=== PATIENT | male | born 1945 | race Caucasian/White ===

== ENCOUNTER 2016-10-04 07:23 | Day surgery (SDC) | payer BC, MEDICARE ==
[2016-10-04] MEDS ORDERED: Sodium Chloride 0.9% 2.5 ML Syringe FLUSH PRN (07:29)
[2016-10-04] MEDS ORDERED: Sodium Chloride 0.9% 10 ML Syringe FLUSH PRN (07:29)
[2016-10-04] MEDS ORDERED: Lactated Ringers 1,000 ML IV SCH (07:30)
[2016-10-04] MEDS ORDERED: Lidocaine 2% 5 ML SDV ONE (07:33)
[2016-10-04] MEDS ORDERED: Midazolam 1 MG/ML 2 ML SDV ONE (07:34)
[2016-10-04] MEDS ORDERED: fentaNYL 250 MCG/5 ML SDV ONE (07:34)
[2016-10-04] MEDS ORDERED: Propofol 200 MG/20 ML SDV ONE (07:34)
[2016-10-04] MEDS ORDERED: Ondansetron 4 MG/2 ML SDV ONE ×2 (07:34→09:38)
[2016-10-04] MEDS ORDERED: fentaNYL 100 MCG/2 ML SDV ONE (07:34)
[2016-10-04] MEDS ORDERED: Ketorolac 30 MG/ML SDV ONE (07:34)
--- NOTE | 2016-10-04 08:21 | PCM.PREANE ---
Preanesthetic Assessment - Procedure Proposed Procedure: Left Knee Arthroscopy and medial menisectomy - Anesthesia/Transfusion/Family Hx Anesthesia History: Prior Anesthesia Without Reaction Family History of Anesthesia Reaction: No Transfusion History: No Prior Transfusion(s) Intubation History: Unknown - Review of Systems General: No Symptoms Pulmonary: No Symptoms Cardiovascular: No Symptoms Gastrointestinal: No Symptoms Neurological: Gait Disturbance (due to left knee pain) Other: Reports: None - Physical Assessment NPO Status Date: 10/03/16 NPO Status Time: 22:00 O2 Sat by Pulse Oximetry: 93 Respiratory Rate: 16 Vital Signs: Last Vital Signs Temp 98.1 F 10/04/16 08:07 Pulse 71 10/04/16 08:07 Resp 16 10/04/16 08:07 BP 123/65 10/04/16 08:07 Pulse Ox 93 L 10/04/16 08:07 Height: 5 ft 7 in Weight: 184 lb ASA Class: 2 Mental Status: Alert & Oriented x3 Airway Class: Mallampati = 2 Dentition: Reports: Normal Dentition Thyro-Mental Finger Breadths: 3 Mouth Opening Finger Breadths: 3 ROM/Head Extension: Full Lungs: Clear to Auscultation, Normal Respiratory Effort Cardiovascular: Regular Rate, Regular Rhythm, No Murmurs - Allergies Allergies/Adverse Reactions: Allergies Allergy/AdvReac Type Severity Reaction Status Date / Time ciprofloxacin [From Cipro] Allergy Rash Verified 10/03/16 15:35 ciprofloxacin HCl Allergy Rash Verified 10/03/16 15:35 [From Cipro] - Blood Blood Available: No Product(s) Available: None - Acknowledgements Anesthesia Type Planned: General Anesthesia (LMA) Pt an Appropriate Candidate for the Planned Anesthesia: Yes Alternatives and Risks of Anesthesia Discussed w Pt/Guardian: Yes Pt/Guardian Understands and Agrees with Anesthesia Plan: Yes PreAnesthesia Questionnaire Other HEENT History: uses reading glasses Cardiovascular History: Reports: None Respiratory History: Reports: None Gastrointestinal History: Reports: Other (See Below) Other Gastrointestinal History: colon cancer Genitourinary History: Reports: None Musculoskeletal History: Reports: Back Pain, Chronic Neurological History: Reports: Other (See Below) Other Neuro History: hx of motion sickness Psychiatric History: Reports: None Endocrine/Metabolic History: Reports: None Hematologic History: Reports: None Immunologic History: Reports: None Oncologic (Cancer) History: Reports: Colon Dermatologic History: Reports: None - Past Surgical History Head Surgeries/Procedures: Reports: None HEENT Surgical History: Reports: None Other GI Surgeries/Procedures: colon resection Neurological Surgical History: Reports: Laminectomy Oncologic Surgical History: Reports: Other (See Below) Other Oncologic Surgeries/Procedures: colon resection - SUBSTANCE USE Smoking Status *Q: Never Smoker Recreational Drug Use History: No - HOME MEDS Home Medications: Home Meds . [No Known Home Meds] 10/03/16 [History] - CURRENT (IN HOUSE) MEDS Current Meds: Current Medications Lactated Ringer's (Ringers, Lactated) 1,000 mls @ 125 mls/hr IV ASDIRECTED QING Sodium Chloride (Saline Flush) 10 ml FLUSH ASDIRECTED PRN PRN Reason: Keep Vein Open Sodium Chloride (Saline Flush) 2.5 ml FLUSH ASDIRECTED PRN PRN Reason: Keep Vein Open Discontinued Medications Fentanyl (Sublimaze) Confirm Administered Dose 100 mcg .ROUTE .STK-MED ONE Stop: 10/04/16 07:35 Fentanyl (Sublimaze) Confirm Administered Dose 250 mcg .ROUTE .STK-MED ONE Stop: 10/04/16 07:35 Ketorolac Tromethamine (Toradol) Confirm Administered Dose 30 mg .ROUTE .STK- MED ONE Stop: 10/04/16 07:35 Lidocaine (Xylocaine-Mpf 2%) Confirm Administered Dose 10 ml .ROUTE .STK-MED ONE Stop: 10/04/16 07:34 Midazolam HCl (Versed 1 Mg/Ml) Confirm Administered Dose 2 mg .ROUTE .STK-MED ONE Stop: 10/04/16 07:35 Ondansetron HCl (Zofran) Confirm Administered Dose 4 mg .ROUTE .STK-MED ONE Stop: 10/04/16 07:35 Propofol (Diprivan 20 Ml) Confirm Administered Dose 400 mg .ROUTE .STK-MED ONE Stop: 10/04/16 07:35
[2016-10-04] MEDS ORDERED: Acetaminophen/HYDROcodone 325-5 MG Tab PO PRN (08:46)
[2016-10-04] MEDS ORDERED: Lidocaine 1% 50 ML MDV ONE (08:49)
[2016-10-04] MEDS ORDERED: ceFAZolin 2 GM in Premix Bag 1 BAG IV SCH (09:00)
[2016-10-04] MEDS ORDERED: fentaNYL 100 MCG/2 ML SDV IVPUSH PRN (10:10)
--- NOTE | 2016-10-04 10:14 | PCM.OPNOTE ---
- General Post-Op/Procedure Note Date of Surgery/Procedure: 10/04/16 Operative Procedure(s): Left knee arthroscopy with partial medial menisectomy Post-Op Diagnosis: DJD left knee. L knee medial meniscus tear Anesthesia Technique: General LMA Primary Surgeon: Nidia GEIGER in mLs: 5 Condition: Good Free Text/Narrative:: tt=18 min #[id number]
--- NOTE | 2016-10-04 10:39 | OR ---
SURGEON: Nidia Mills MD DATE OF PROCEDURE: 10/04/2016 PREOPERATIVE DIAGNOSIS: Left knee medial meniscus tear. POSTOPERATIVE DIAGNOSES: 1. Left knee medial meniscus tear. 2. Degenerative joint disease, left knee. PROCEDURE: Left knee arthroscopy with partial medial meniscectomy. WEB COMMUNICATIONS SPECIALIST: None. ANESTHESIA: General. ESTIMATED BLOOD LOSS: 5 mL. TOURNIQUET TIME: 18 minutes. COMPLICATIONS: None. DVT PROPHYLAXIS: Not indicated. IMPLANTS USED: None. BRIEF HISTORY: Mann is a 71-year-old male, who began having increasing left knee pain and swelling. He did undergo a knee aspiration along with cortisone injection, which gave him good temporary relief. His pain subsequently recurred. He complained of a giving way sensation. He did have an MRI, which did confirm a tear of the medial meniscus with displacement. Due to his lack of response to conservative treatment, I did recommend surgical intervention. The risks and goals of procedure were discussed with the patient and were documented preoperatively. He agreed to proceed. DESCRIPTION OF PROCEDURE: The patient was properly identified and brought to the operating room. He was transferred from the OR cart and placed on the operating table in supine position. General anesthesia was administered. After adequate anesthesia was obtained, a well-padded tourniquet was applied to the left lower extremity. The left lower extremity was then prepped in standard fashion using ChloraPrep solution. It was then sterilely draped. A time-out was performed to ensure correct site and procedure. Preoperative antibiotics were given. The surgical site had been marked preoperatively. An Esmarch was used to exsanguinate the left lower extremity and the tourniquet was inflated to 250 mmHg. A lateral portal arthrotomy was established. Blunt trocar and cannula were introduced into the suprapatellar pouch. Camera, inflow, and outflow were assembled. The suprapatellar pouch showed no signs of synovitis. The patellofemoral joint was then visualized. The patella appeared to track centrally. I then extended down the lateral and medial gutters. No loose bodies were identified. I then entered the medial compartment. A medial portal arthrotomy was established. A blunt probe was inserted. He was found to have a complex degenerative tear of the posterior horn of the medial meniscus. A portion of the medial meniscus had flipped into the notch. Using a combination of biters and shaver, this was resected back to a stable remnant. The joint surfaces were then inspected. 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 Grade 2 chondromalacia was noted along the medial femoral condyle. I then entered the notch. Both the ACL and PCL were visualized and probed and found to be intact. I then entered the lateral compartment. The meniscus was again probed. It was found to be stable. Some minor degenerative fraying was noted along the central portion which was resected with a biter and shaver. The joint surfaces showed evidence of grade 2 chondromalacia. I then re-entered the patellofemoral joint. A portion of the fat pad was resected for visualization. He did have diffuse degenerative changes along the trochlear groove consistent with grade 3 chondromalacia. There was a small area of grade 4 chondromalacia centrally. A chondroplasty was performed to remove any unstable fragments. The patella showed grade 2 chondromalacia only. The instruments were then removed from the knee. The portal sites were closed with 3-0 nylon. Xeroform gauze was placed over the wound and a bulky dressing was applied. The tourniquet was then deflated. He was awakened from his anesthetic and transferred back to the operating room cart. He was brought to recovery room in stable condition. All needle and sponge counts were correct. DEBBIE / BRITNEY /[id number]
--- NOTE | 2016-10-04 10:45 | PCM.POSTAN ---
POST ANESTHESIA ASSESSMENT - MENTAL STATUS Mental Status: Alert, Oriented Free Text/Narrative:: Slept with oral airway in place for 30 minutes. Awake and ready for transfer to phase II - RESPIRATORY Respiratory Status: Respiratory Rate WNL, Airway Patent, O2 Saturation Stable - CARDIOVASCULAR CV Status: Pulse Rate WNL, Blood Pressure Stable - GASTROINTESTINAL GI Status: No Symptoms - POST OP HYDRATION Hydration Status: Adequate & Stable
--- NOTE | 2016-10-04 10:51 | HP ---
DATE OF : 1945 PRIMARY CARE PHYSICIAN: None PCP CHIEF COMPLAINT: Left knee pain and swelling. HISTORY OF PRESENT ILLNESS: Mann is a 71-year-old male who has had a complaint of recent left knee pain and swelling. He cannot recall a specific injury. He states his pain is related primarily to activity. He has noted intermittent swelling. He did undergo a left knee aspiration with cortisone injection approximately 3 weeks ago. He states this gave him good pain relief initially; however, his pain and swelling have recurred. It is now limiting his day-to-day activities. He does have a history of a prior knee arthroscopy many years ago; however, he is unsure which knee that was performed on. He recently had an MRI, which showed a complex tear of the medial meniscus with displacement of a meniscus fragment. Due to his lack of response to conservative treatment, I recommended surgical treatment. PAST MEDICAL HISTORY: The patient denies. PAST SURGICAL HISTORY: Knee arthroscopy, back surgery, and colon resection. MEDICATIONS: None. ALLERGIES: Cipro. SOCIAL HISTORY: He is currently employed as a urologist. He denies tobacco use. FAMILY HISTORY: Noncontributory. REVIEW OF SYSTEMS: He denies recent fever, chills, cough, shortness of breath, chest pain, nausea, or vomiting. PHYSICAL EXAMINATION: VITAL SIGNS: Blood pressure 122/65, temp 36.7, pulse 71, and respirations 16. SpO2 is 93% on room air. GENERAL: This is an alert and well-nourished male who is resting in hospital bed in no apparent distress. HEENT: Head is normocephalic and atraumatic. NECK: Supple. CHEST: Showed symmetrical excursions, unlabored. HEART: Regular rate. ABDOMEN: Soft. EXTREMITIES: Exam of the left lower extremity shows a mild joint effusion. No obvious malalignment is noted. He does have tenderness along the medial joint line. He has full extension with flexion to 115 degrees. He is stable to varus and valgus stressing. Crepitus is noted along the patellofemoral joint. Anterior tib, EHL, gastroc strength is 5/5. Sensation is grossly intact. Dorsalis pedis pulses 2+. IMAGING: X-rays of the left knee were obtained. This shows no acute findings. MRI of the left knee shows a displaced tear of the medial meniscus with degenerative changes noted along the patellofemoral joint. ASSESSMENT: Left knee medial meniscus tear. PLAN: At this time, treatment options were discussed with the patient. He has had a good trial of conservative treatment which has not given him lasting relief. At this time, I am recommending that he undergo a left knee arthroscopy with partial medial meniscectomy. This would give us a chance to evaluate the chondral surfaces as well. The procedure as well as postoperative course was discussed. Risks of the procedure include, but are not limited to infection, neurovascular injury, continued pain, need for future surgery, blood clot, and anesthetic complications. The patient seems to understand these risks and would like to proceed with surgery. We will plan on performing it in the near future. DEBBIE / BRITNEY /[id number]
--- NOTE | 2016-10-04 11:34 | PCM48HPAN ---
Post Anesthesia Note - EVALUATION WITHIN 48HRS OF ANESTHETIC Vital Signs in Normal Range: Yes Patient Participated in Evaluation: Yes Respiratory Function Stable: Yes Airway Patent: Yes Cardiovascular Function Stable: Yes Hydration Status Stable: Yes Pain Control Satisfactory: Yes Nausea and Vomiting Control Satisfactory: Yes Mental Status Recovered: Yes
[2016-10-04] MEDS ORDERED: Ondansetron 4 MG/2 ML SDV IVPUSH ONE (13:36)
[2016-10-04 15:45] VITALS: BP 121/64
== END 2016-10-04 13:52 | disposition home or self-care (01) ==
LOC: MW.SDS 07:23
PROVIDERS: ATTEND Orthopaedic Surgery
PROC: 0SBD4ZZ Excision of Left Knee Joint, Percutaneous Endoscopic Approach (ICD-10-PCS; principal; 2016-10-04)
DX: M23.322 Other meniscus derangements, posterior horn of medial meniscus, left knee (principal); M17.12 Unilateral primary osteoarthritis, left knee; M94.262 Chondromalacia, left knee; Z85.038 Personal history of other malignant neoplasm of large intestine; Z90.49 Acquired absence of other specified parts of digestive tract; Z98.890 Other specified postprocedural states; Z88.1 Allergy status to other antibiotic agents
CPT/HCPCS: 29881; 88304; J1885; J2250; J2405; J3010; J7120; 01400; J2704

== ENCOUNTER 2017-05-10 21:40 | Observation (INO) | payer BC, MEDICARE ==
[2017-05-10] MEDS ORDERED: Sodium Chloride 0.9% 10 ML Syringe FLUSH PRN (21:41)
[2017-05-10] MEDS ORDERED: Sodium Chloride 0.9% 2.5 ML Syringe FLUSH PRN (21:41)
[2017-05-10] MEDS ORDERED: Diltiazem 25 MG/5 ML SDV IVPUSH ONE (21:46)
--- NOTE | 2017-05-10 21:55 | EDM.PDOC ---
<Halima Moore - Last Filed: 05/10/17 22:20> ED HPI GENERAL MEDICAL PROBLEM - General Stated Complaint: UNK Time Seen by Provider: 05/10/17 21:45 - History of Present Illness INITIAL COMMENTS - FREE TEXT/NARRATIVE: Dr. Moore dictating an addendum note. I personally seen and evaluated this patient as well and Dr. Lizarraga is here in the emergency department at 2205 to take over the care and admit the patient. He would like a dose of Lovenox to be given. A repeat EKG was performed for total of 2 EKGs and he is still in atrial fibrillation but he is rate controlled. We will plan on observation on telemetry. Please also note that the patient didn't take medication prior to coming here including an aspirin and atenolol. Dr. Lizarraga has seen and evaluated the patient and does not want us to hold the patient in the ED pending the lab test results and x-ray results. He says he will follow those up. As soon as the room is available we will plan on transfer for observation admission. - Related Data Allergies Allergy/AdvReac Type Severity Reaction Status Date / Time oxycodone Allergy Chest Pain Verified 05/10/17 22:03 Home Meds: Home Meds Acetaminophen/HYDROcodone [[place] 325-5 MG] 1 - 2 tab PO Q4H PRN #80 tablet 10/04 [Rx] ED ROS GENERAL - Review of Systems Review Of Systems: ROS reveals no pertinent complaints other than HPI. ED EXAM, GENERAL - Physical Exam Exam: See Below (see dictation) Course - Vital Signs Last Recorded V/S: Last Vital Signs Temp 36.2 C 05/11/17 05:00 Pulse 93 05/11/17 06:35 Resp 16 05/11/17 08:00 BP 133/89 05/11/17 08:00 Pulse Ox 96 05/11/17 08:00 - Orders/Labs/Meds Orders: Active Orders 24 hr Category Date Time Status Cardiac Monitoring [RC] Q8H Care 05/10/17 21:40 Active Chest 1V Frontal [CR] Stat Exams 05/10/17 21:41 Taken Sodium Chloride 0.9% [Saline Flush] Med 05/10/17 21:41 Active 10 ml FLUSH ASDIRECTED PRN Sodium Chloride 0.9% [Saline Flush] Med 05/10/17 21:41 Active 2.5 ml FLUSH ASDIRECTED PRN Saline Lock Insert [OM.PC] Stat Oth 05/10/17 21:40 Ordered Medication Orders Acetaminophen (Tylenol) 650 mg PO Q4H PRN PRN Reason: Pain (Mild 1-3)/fever Hydrocodone Bitart/Acetaminophen ([place] 325-5 Mg) 1 tab PO Q4H PRN PRN Reason: Pain Aspirin (Aspirin) 81 mg PO DAILY [facility] Last Admin: 05/11/17 08:00 Dose: 81 mg Heparin Sodium (Porcine) (Heparin Sodium) 5,000 units SUBCUT Q12H [facility] Last Admin: 05/10/17 23:39 Dose: Sodium Chloride (Normal Saline) 1,000 mls @ 75 mls/hr IV ONETIME ONE Stop: 05/11/17 17:04 Last Admin: 05/11/17 04:03 Dose: 125 mls/hr Metoprolol Tartrate (Lopressor) 50 mg PO BID [facility] Last Admin: 05/11/17 06:35 Dose: 50 mg Ondansetron HCl (Zofran Odt) 4 mg PO Q4H PRN PRN Reason: nausea, able to take PO Last Admin: 05/11/17 07:30 Dose: 4 mg Ondansetron HCl (Zofran) 4 mg IVPUSH Q4H PRN PRN Reason: Nausea Polyethylene Glycol (Miralax) 17 gm PO DAILY PRN PRN Reason: Constipation Sodium Chloride (Saline Flush) 10 ml FLUSH ASDIRECTED PRN PRN Reason: Keep Vein Open Sodium Chloride (Saline Flush) 2.5 ml FLUSH ASDIRECTED PRN PRN Reason: Keep Vein Open Temazepam (Restoril) 15 mg PO BEDTIME PRN PRN Reason: Sleep Labs: Laboratory Tests 05/10/17 05/10/17 05/10/17 Range/Units 21:58 21:58 21:58 WBC 144.30 H (4.0-11.0) K/uL RBC 4.70 (4.50-5.90) M/uL Hgb 14.1 (13.0-17.0) g/dL Hct 43.8 (38.0-50.0) % MCV 93.2 (80.0-98.0) fL MCH 30.0 (27.0-32.0) pg MCHC 32.2 (31.0-37.0) g/dL RDW Std Deviation 46.3 (28.0-62.0) fl RDW Coeff of Isaias 14 (11.0-15.0) % Plt Count 263 (150-400) K/uL MPV 10.90 (7.40-12.00) fL Add Manual Diff YES Neutrophils % (Manual) 9 L (48.0-80.0) % Lymphocytes % (Manual) 91 H (16.0-40.0) % Nucleated RBC % 0.0 /100WBC Absolute Seg Neuts 13.0 H (1.4-5.7) Lymphocytes # (Manual) 131.3 H (0.6-2.4) Nucleated RBCs # 0 K/uL INR 0.96 Sodium 141 (136-148) mmol/L Potassium 4.3 (3.5-5.1) mmol/L Chloride 103 (98-107) mmol/L Carbon Dioxide 28.2 (21.0-32.0) mmol/L BUN 27 H (7.0-18.0) mg/dL Creatinine 1.1 (0.8-1.3) mg/dL Est Cr Clr Drug Dosing TNP Estimated GFR (MDRD) > 60.0 ml/min Glucose 139 H (74-106) mg/dL Calcium 8.9 (8.5-10.1) mg/dL Magnesium 1.6 (1.5-2.0) mg/dL Total Bilirubin 0.6 (0.2-1.0) mg/dL AST 19 (15-37) IU/L ALT 22 (14-63) IU/L Alkaline Phosphatase 75 (46-116) U/L Troponin I < 0.050 (0.000-0.056) ng/mL Total Protein 6.5 (6.4-8.2) g/dL Albumin 3.5 (3.4-5.0) g/dL Globulin 3.0 (2.0-3.5) g/dL Albumin/Globulin Ratio 1.2 L (1.3-2.8) TSH 3rd Generation 1.24 (0.36-3.74) uIU/mL Meds: Medications Generic Name Dose Route Start Last Admin Trade Name Freq PRN Reason Stop Dose Admin Acetaminophen 650 mg 05/10/17 22:38 Tylenol PO Q4H PRN Pain (Mild 1-3)/fever Hydrocodone Bitart/Acetaminophen 1 tab 05/11/17 07:42 [place] 325-5 Mg PO Q4H PRN Pain Aspirin 81 mg 05/11/17 09:00 05/11/17 08:00 Aspirin PO 81 mg DAILY QING Administration Heparin Sodium (Porcine) 5,000 units 05/10/17 22:45 05/10/17 23:39 Heparin Sodium SUBCUT Not Given Q12H [facility] Sodium Chloride 1,000 mls @ 75 mls/hr 05/11/17 03:45 05/11/17 04:03 Normal Saline IV 05/11/17 17:04 125 mls/hr ONETIME ONE Administration Metoprolol Tartrate 50 mg 05/11/17 06:30 05/11/17 06:35 Lopressor PO 50 mg BID QING Administration Ondansetron HCl 4 mg 05/10/17 22:38 05/11/17 07:30 Zofran Odt PO 4 mg Q4H PRN Administration nausea, able to take PO Ondansetron HCl 4 mg 05/10/17 22:38 Zofran IVPUSH Q4H PRN Nausea Polyethylene Glycol 17 gm 05/10/17 22:38 Miralax PO DAILY PRN Constipation Sodium Chloride 10 ml 05/10/17 21:41 Saline Flush FLUSH ASDIRECTED PRN Keep Vein Open Sodium Chloride 2.5 ml 05/10/17 21:41 Saline Flush FLUSH ASDIRECTED PRN Keep Vein Open Temazepam 15 mg 05/10/17 22:38 Restoril PO BEDTIME PRN Sleep Discontinued Medications Generic Name Dose Route Start Last Admin Trade Name Freq PRN Reason Stop Dose Admin Hydrocodone Bitart/Acetaminophen 1 tab 05/10/17 22:38 [place] 325-5 Mg PO Q4H PRN Pain (moderate 4-6) Diazepam 2 mg 05/11/17 07:32 05/11/17 08:00 Valium PO 05/11/17 07:33 2 mg ONETIME ONE Administration Diltiazem HCl 20 mg 05/10/17 21:46 05/10/17 21:52 Diltiazem IVPUSH 05/10/17 21:47 20 mg ONETIME ONE Administration Enoxaparin Sodium 80 mg 05/10/17 22:10 05/10/17 23:38 Lovenox SUBCUT 05/10/17 22:11 40 mg ONETIME ONE Administration Hydromorphone HCl 1 mg 05/10/17 22:38 05/10/17 23:54 Dilaudid IVPUSH 1 mg Q2H PRN Administration Pain (severe 7-10) Hydromorphone HCl 2 mg 05/10/17 22:51 Dilaudid PO Q4H PRN Pain Sodium Chloride 1,000 mls @ 999 mls/hr 05/10/17 21:56 05/10/17 22:03 Normal Saline IV 05/10/17 22:56 999 mls/hr STAT ONE Administration Magnesium Sulfate 4 gm/ Premix 100 mls @ 25 mls/hr 05/10/17 23:31 05/10/17 23 :44 IV 05/11/17 03:30 25 mls/hr ONETIME ONE Administration Departure - Departure Time of Disposition: 22:21 Disposition: Refer to Observation Condition: Good Clinical Impression: Atrial fibrillation Qualifiers: Atrial fibrillation type: unspecified Qualified Code(s): I48.91 - Unspecified atrial fibrillation - Discharge Information - My Orders Last 24 Hours: My Active Orders 05/10/17 21:40 Cardiac Monitoring [RC] Q8H Saline Lock Insert [OM.PC] Stat 05/10/17 21:41 Chest 1V Frontal [CR] Stat Sodium Chloride 0.9% [Saline Flush] 10 ml FLUSH ASDIRECTED PRN Sodium Chloride 0.9% [Saline Flush] 2.5 ml FLUSH ASDIRECTED PRN - Assessment/Plan Last 24 Hours: My Active Orders 05/10/17 21:40 Cardiac Monitoring [RC] Q8H Saline Lock Insert [OM.PC] Stat 05/10/17 21:41 Chest 1V Frontal [CR] Stat Sodium Chloride 0.9% [Saline Flush] 10 ml FLUSH ASDIRECTED PRN Sodium Chloride 0.9% [Saline Flush] 2.5 ml FLUSH ASDIRECTED PRN <Merle Kraus - Last Filed: 05/11/17 10:10> ED HPI GENERAL MEDICAL PROBLEM - General Source of Information: Reports: Patient History Limitations: Reports: No Limitations - History of Present Illness INITIAL COMMENTS - FREE TEXT/NARRATIVE: HISTORY AND PHYSICAL: []72-year-old male presenting with new onset atrial fibrillation approximately 10 minutes History of Present Illness: []Patient does not have history of atrial fibrillation Prior to arrival in the ER patient took atenolol to a baby aspirin. Patient has history of colon cancer 23 years ago with surgical intervention He states that he has had intermittent spells of a few seconds of fibrillation in the past that seems to be aggravated with taking Motrin. He had 2 Motrin today earlier. Review of Systems: As per history of present illness and below otherwise all systems reviewed and negative. Past medical history: As per history of present illness and as reviewed below otherwise noncontributory. Surgical history: As per history of present illness and as reviewed below otherwise noncontributory. Social history: No reported history of drug or alcohol abuse. Family history: As per history of present illness and as reviewed below otherwise noncontributory. Physical exam: Patient is complaining of some shortness of breath at this time. Heart rate 148 atrial fibrillation. Alert and oriented answering questions appropriately in full sentences without noticeable shortness of breath. Skin is warm and dry. EKG initially showing fibrillation with rapid ventricular response at 148. HEENT: Atraumatic, normocehpalic, pupils reactive, negative for conjunctival pallor or scleral icterus, mucous membranes moist, throat clear, neck supple, nontender, trachea midline. PERRLA. Lungs: Clear to auscultation, breath sounds equal bilaterally, chest non tender. Heart: S1S2, irregular, negative for clicks, rubs, or JVD. Abdomen: Soft, nondistended, nontender. Negative for masses or hepatossplenmegaly. Negative for costovertebral tenderness. Pelvis: Stable nontender. Genitourinary: Deferred. Rectal: Deferred Extremities: Atraumatic, negative for cords or calf pain. Neurovascular unremarkable. Neuro: Awake, alert, oriented. Cranial nerves II through XII unremarkable. Cerebellum unremarkable. Motor and sensory unremarkable throughout. Exam nonfocal. Course of action during stay 20 mg of Cardizem was an IV he had a reduction in his tachycardia continues to be in atrial fibrillation 70s-80s. 22:05 Dr. Lizarraga here to take over this case. Diagnostics: [CBC CMP troponin TSH chest x-ray] Therapeutics: [Cardizem IV 20 milligrams Normal saline Impression: [Atrial fibrillation with rapid ventricular response] Plan: [Refer for observation on telemetry] Definitive disposition and diagnosis as appropriate pending reevaluation and review of above. Onset: Today, Sudden Duration: Minutes: (10) Location: Reports: Chest Quality: Reports: Ache Severity: Moderate Improves with: Reports: None Worsens with: Reports: None Associated Symptoms: Reports: No Other Symptoms Back Pain Score (Numeric/FACES): 5 Past Medical History Other HEENT History: uses reading glasses Cardiovascular History: Reports: None Respiratory History: Reports: None Gastrointestinal History: Reports: Other (See Below) Other Gastrointestinal History: colon cancer Genitourinary History: Reports: None Musculoskeletal History: Reports: Back Pain, Chronic Neurological History: Reports: Other (See Below) Other Neuro History: hx of motion sickness Psychiatric History: Reports: None Endocrine/Metabolic History: Reports: None Hematologic History: Reports: None Immunologic History: Reports: None Oncologic (Cancer) History: Reports: Colon Dermatologic History: Reports: None - Past Surgical History Head Surgeries/Procedures: Reports: None HEENT Surgical History: Reports: None Other GI Surgeries/Procedures: colon resection Neurological Surgical History: Reports: Laminectomy Oncologic Surgical History: Reports: Other (See Below) Other Oncologic Surgeries/Procedures: colon resection Social & Family History - Tobacco Use Smoking Status *Q: Never Smoker - Recreational Drug Use Recreational Drug Use: No Drug Use in Last 12 Months: No ED ROS GENERAL - Review of Systems Review Of Systems: ROS reveals no pertinent complaints other than HPI. ED EXAM, GENERAL - Physical Exam Exam: See Below (See dictation) EKG INTERPRETATION EKG Date: 05/10/17 Rhythm: A-Fib Course - Vital Signs Last Recorded V/S: Last Vital Signs Temp 36.2 C 05/11/17 05:00 Pulse 93 05/11/17 06:35 Resp 16 05/11/17 08:00 BP 133/89 05/11/17 08:00 Pulse Ox 96 05/11/17 08:00 - Orders/Labs/Meds Labs: Laboratory Tests 05/10/17 05/10/17 05/10/17 Range/Units 21:58 21:58 21:58 WBC 144.30 H (4.0-11.0) K/uL RBC 4.70 (4.50-5.90) M/uL Hgb 14.1 (13.0-17.0) g/dL Hct 43.8 (38.0-50.0) % MCV 93.2 (80.0-98.0) fL MCH 30.0 (27.0-32.0) pg MCHC 32.2 (31.0-37.0) g/dL RDW Std Deviation 46.3 (28.0-62.0) fl RDW Coeff of Isaias 14 (11.0-15.0) % Plt Count 263 (150-400) K/uL MPV 10.90 (7.40-12.00) fL Add Manual Diff YES Neutrophils % (Manual) 9 L (48.0-80.0) % Lymphocytes % (Manual) 91 H (16.0-40.0) % Nucleated RBC % 0.0 /100WBC Absolute Seg Neuts 13.0 H (1.4-5.7) Lymphocytes # (Manual) 131.3 H (0.6-2.4) Nucleated RBCs # 0 K/uL INR 0.96 Sodium 141 (136-148) mmol/L Potassium 4.3 (3.5-5.1) mmol/L Chloride 103 (98-107) mmol/L Carbon Dioxide 28.2 (21.0-32.0) mmol/L BUN 27 H (7.0-18.0) mg/dL Creatinine 1.1 (0.8-1.3) mg/dL Est Cr Clr Drug Dosing TNP Estimated GFR (MDRD) > 60.0 ml/min Glucose 139 H (74-106) mg/dL Calcium 8.9 (8.5-10.1) mg/dL Magnesium 1.6 (1.5-2.0) mg/dL Total Bilirubin 0.6 (0.2-1.0) mg/dL AST 19 (15-37) IU/L ALT 22 (14-63) IU/L Alkaline Phosphatase 75 (46-116) U/L Troponin I < 0.050 (0.000-0.056) ng/mL Total Protein 6.5 (6.4-8.2) g/dL Albumin 3.5 (3.4-5.0) g/dL Globulin 3.0 (2.0-3.5) g/dL Albumin/Globulin Ratio 1.2 L (1.3-2.8) TSH 3rd Generation 1.24 (0.36-3.74) uIU/mL
[2017-05-10] MEDS ORDERED: Sodium Chloride 0.9% 1,000 ML IV ONE (21:56)
[2017-05-10] MEDS ORDERED: Enoxaparin 100 MG/1 ML Syringe SUBCUT ONE (22:10)
--- NOTE | 2017-05-10 22:34 | PCM.HP ---
H&P History of Present Illness - General Date of Service: 05/10/17 Admit Problem/Dx: Admission Diagnosis/Problem Admission Diagnosis/Problem Atrial fibrillation Source of Information: Patient History Limitations: Reports: No Limitations - History of Present Illness Initial Comments - Free Text/Narative: 72 yo male presenting to ED with c/c of palpitations with no significant cardiopulmonary history. Patient presented to ED with reported palpitations that started this evening. He has felt intermittent palpitations occasionally in the past but states that they go away in a few seconds. States that he did receive a steroid injection in his back yesterday by Dr. Yusuf. He also took 3 Advil last night and 2 Advil today. He denies any associated chest pain, nausea, vomiting, diarrhea, sore throat, abdominal pain, leg/calf pain, syncopal episodes, or focal neurologic deficits. He denies any history cardiopulmonary disease and does not take any regular medicine other than an occasional pain pill for his back. Patient does have a history of CLL and has thus had consistently elevated white blood cell counts. Emergency department: White blood cell count elevated to 144.3 today associated with this history of CLL, INR 0.96, magnesium 1.6, TSH normal at 1.24, initial troponin and chest x- ray unremarkable. Initial EKG showing A. fib with RVR. Patient was given 20 of Cardizem and repeat EKG showed A. fib with normal rate. He was also given 80 of Lovenox. Patient admitted for new onset A. fib with RVR. - Related Data Allergies/Adverse Reactions: Allergies Allergy/AdvReac Type Severity Reaction Status Date / Time oxycodone Allergy Chest Pain Verified 05/10/17 22:03 Home Medications: Home Meds Acetaminophen/HYDROcodone [[place] 325-5 MG] 1 - 2 tab PO Q4H PRN #80 tablet 10/04 [Rx] Past Medical History Other HEENT History: uses reading glasses Cardiovascular History: Reports: None Respiratory History: Reports: None Gastrointestinal History: Reports: Other (See Below) Other Gastrointestinal History: colon cancer Genitourinary History: Reports: None Musculoskeletal History: Reports: Back Pain, Chronic Neurological History: Reports: Other (See Below) Other Neuro History: hx of motion sickness Psychiatric History: Reports: None Endocrine/Metabolic History: Reports: None Hematologic History: Reports: None Immunologic History: Reports: None Oncologic (Cancer) History: Reports: Colon Dermatologic History: Reports: None - Past Surgical History Head Surgeries/Procedures: Reports: None HEENT Surgical History: Reports: None Other GI Surgeries/Procedures: colon resection Neurological Surgical History: Reports: Laminectomy Oncologic Surgical History: Reports: Other (See Below) Other Oncologic Surgeries/Procedures: colon resection Social & Family History - Family History Family Medical History: Noncontributory - Tobacco Use Smoking Status *Q: Never Smoker - Recreational Drug Use Recreational Drug Use: No Drug Use in Last 12 Months: No H&P Review of Systems - Review of Systems: Review Of Systems: See Below General: Denies: Fever, Chills, Malaise HEENT: Denies: Headaches, Sore Throat Pulmonary: Denies: Shortness of Breath, Cough Cardiovascular: Reports: Palpitations. Denies: Chest Pain, Orthopnea, PND, Edema, Blood Pressure Problem Gastrointestinal: Denies: Abdominal Pain, Black Stool, Bloody Stool, Diarrhea, Nausea Genitourinary: Denies: Dysuria, Hematuria Musculoskeletal: Denies: Neck Pain, Leg Pain Skin: Denies: Cyanosis Psychiatric: Denies: Confusion Neurological: Denies: Confusion, Dizziness, Headache Hematologic/Lymphatic: Denies: Anemia Exam - Exam Exam: See Below - Vital Signs Vital Signs: Last Vital Signs Temp 97.8 F 05/10/17 21:40 Pulse 131 H 05/10/17 21:40 Resp 20 05/10/17 21:40 BP 145/89 H 05/10/17 21:40 Pulse Ox 95 05/10/17 21:40 Weight: 82.554 kg - Exam Quality Assessment: DVT Prophylaxis General: Alert, Oriented, Cooperative - Patient Data Lab Results Last 24 hrs: Laboratory Results - last 24 hr 05/10/17 05/10/17 Range/Units 21:58 21:58 WBC 144.30 H (4.0-11.0) K/uL RBC 4.70 (4.50-5.90) M/uL Hgb 14.1 (13.0-17.0) g/dL Hct 43.8 (38.0-50.0) % MCV 93.2 (80.0-98.0) fL MCH 30.0 (27.0-32.0) pg MCHC 32.2 (31.0-37.0) g/dL RDW Std Deviation 46.3 (28.0-62.0) fl RDW Coeff of Isaias 14 (11.0-15.0) % Plt Count 263 (150-400) K/uL MPV 10.90 (7.40-12.00) fL Add Manual Diff YES Nucleated RBC % 0.0 /100WBC Nucleated RBCs # 0 K/uL INR 0.96 Result Diagrams: 05/10/17 21:58 05/10/17 21:58 *Q Meaningful Use (ADM) - VTE *Q VTE Criteria *Q: - Stroke *Q Stroke Criteria *Q: - AMI *Q AMI Criteria *Q: - Problem List (1) New onset atrial fibrillation SNOMED Code(s): 42121276 ICD Code: I48.91 - UNSPECIFIED ATRIAL FIBRILLATION Status: Acute Priority : High Current Visit: Yes Problem List Initiated/Reviewed/Updated: Yes Orders Last 24hrs: Active Orders 24 hr Category Date Time Status Patient Status [ADT] Stat ADT 05/10/17 22:10 Active Cardiac Monitoring [RC] . DIRECTED Care 05/10/17 21:40 Active EKG Documentation Completion [RC] STAT Care 05/10/17 21:40 Active EKG Documentation Completion [RC] STAT Care 05/10/17 22:06 Active Chest 1V Frontal [CR] Stat Exams 05/10/17 21:41 Taken CBC WITH AUTO DIFF [HEME] Stat Lab 05/10/17 21:58 Results COMPREHENSIVE METABOLIC PN,CMP [CHEM] Stat Lab 05/10/17 21:58 Received MAGNESIUM [CHEM] Stat Lab 05/10/17 21:58 Received TROPONIN I [CHEM] Stat Lab 05/10/17 21:58 Received TSH [CHEM] Stat Lab 05/10/17 21:58 Received Sodium Chloride 0.9% [Normal Saline] 1,000 ml Med 05/10/17 21:56 Active IV STAT Sodium Chloride 0.9% [Saline Flush] Med 05/10/17 21:41 Active 10 ml FLUSH ASDIRECTED PRN Sodium Chloride 0.9% [Saline Flush] Med 05/10/17 21:41 Active 2.5 ml FLUSH ASDIRECTED PRN Saline Lock Insert [OM.PC] Stat Oth 05/10/17 21:40 Ordered Medication Orders Sodium Chloride (Normal Saline) 1,000 mls @ 999 mls/hr IV STAT ONE Stop: 05/10/17 22:56 Last Admin: 05/10/17 22:03 Dose: 999 mls/hr Sodium Chloride (Saline Flush) 10 ml FLUSH ASDIRECTED PRN PRN Reason: Keep Vein Open Sodium Chloride (Saline Flush) 2.5 ml FLUSH ASDIRECTED PRN PRN Reason: Keep Vein Open Assessment/Plan Comment:: 72-year-old male admitted new-onset A. fib with RVR with past medical history of CLL but no cardiopulmonary history. New-onset A. fib: Patient was given 20 of [facility] emergency department which relieved his RVR but patient is still in A. fib on subsequent EKG. Have discussed with patient possible etiology. States that he has had injections in his back in the past and has noticed that he sometimes does feel palpitations intermittently and this may have been part of the etiology. Place patient on telemetry and supplement magnesium to get above 2.0. Will watch overnight and hopefully patient will convert on his own. [id number] score of 1 and patient has requested only aspirin vs other anticoagulation. He did take aspirin this evening when he first felt the palpitations. Will consider pharm and/or electrical cardioversion tomorrow after discussing case with cardiology. TSH and intial troponin unremarkable. Have also ordered echocardiogram. VTE: Heparin, SCD Dispo: 1-2 days pending. Will need follow-up with cardiology.
[2017-05-10 22:38] LABS: CHLORIDE,CL 103 mmol/L (98-107); SODIUM,NA 141 mmol/L (136-148)
[2017-05-10] MEDS ORDERED: Acetaminophen 325 MG Tab PO PRN (22:38)
[2017-05-10] MEDS ORDERED: HYDROmorphone 2 MG/ML SDV IVPUSH PRN (22:38)
[2017-05-10] MEDS ORDERED: Ondansetron 4 MG/2 ML SDV IVPUSH PRN (22:38)
[2017-05-10] MEDS ORDERED: Temazepam 15 MG Cap PO PRN (22:38)
[2017-05-10] MEDS ORDERED: Polyethylene Glycol 3350 Powder 17 GM Packet PO PRN (22:38)
[2017-05-10] MEDS ORDERED: Acetaminophen/HYDROcodone 325-5 MG Tab PO PRN (22:38)
[2017-05-10] MEDS ORDERED: HYDROmorphone 2 MG Tab PO PRN (22:51)
[2017-05-10] MEDS ORDERED: Magnesium Sulfate/Water 4 GM in Premix Bag 1 BAG IV ONE (23:31)
[2017-05-10] MEDS: Heparin Sodium 5,000 Units/ML Vial SUBCUT SCH (23:39)
[2017-05-11] MEDS ORDERED: Sodium Chloride 0.9% 1,000 ML IV ONE (03:45)
[2017-05-11] MEDS: Metoprolol Tartrate 50 MG Tab PO SCH ×2 (06:35→20:21)
[2017-05-11 06:47] LABS: CHLORIDE,CL 105 mmol/L (98-107); SODIUM,NA 140 mmol/L (136-148)
[2017-05-11] MEDS: Ondansetron 4 MG Tab.DIS PO PRN ×2 (07:30→23:40)
[2017-05-11] MEDS ORDERED: Diazepam 2 MG Tab PO ONE ×2 (07:32→20:12)
[2017-05-11] MEDS: Aspirin 81 MG Tab.Chew PO SCH (08:00)
--- NOTE | 2017-05-11 08:23 | PCM.PN ---
- General Info Date of Service: 05/11/17 Admission Dx/Problem (Free Text): Admission Diagnosis/Problem Admission Diagnosis/Problem Atrial fibrillation Subjective Update: Having some chest tightness and anxiety this morning. Does request that we talk with Dr. Khalil, cardiolgist. No overt chest pain. Cont. palpitations. No nausea, vomiting, diaphoresis or sob. Did not sleep well approximately 3 hrs. Also having some back pain but dilaudid given last night was to much and made him feel "loopy". Functional Status: Reports: Pain Controlled - Review of Systems General: Denies: Fever, Weakness, Fatigue, Malaise HEENT: Denies: Headaches, Visual Changes Pulmonary: Denies: Shortness of Breath, Cough, Hemoptysis Cardiovascular: Reports: Chest Pain. Denies: Palpitations (tightness), Edema, Lightheadedness Gastrointestinal: Denies: Abdominal Pain, Diarrhea, Nausea, Vomiting Genitourinary: Denies: Dysuria, Hematuria Musculoskeletal: Reports: Back Pain. Denies: Neck Pain, Leg Pain Skin: Denies: Cyanosis Neurological: Denies: Confusion, Dizziness, Headache Psychiatric: Denies: Confusion - Patient Data Vitals - Most Recent: Last Vital Signs Temp 97.2 F 05/11/17 05:00 Pulse 93 05/11/17 06:35 Resp 16 05/11/17 08:00 BP 133/89 05/11/17 08:00 Pulse Ox 96 05/11/17 08:00 Weight - Most Recent: 82.554 kg I&O - Last 24 Hours: Intake & Output 05/10/17 05/11/17 05/11/17 21:59 06:59 14:59 Intake Total Output Total Balance Lab Results Last 24 Hours: Laboratory Results - last 24 hr 05/11/17 05/11/17 05/11/17 Range/Units 06:18 06:18 06:18 WBC 139.18 H (4.0-11.0) K/uL RBC 4.68 (4.50-5.90) M/uL Hgb 13.9 (13.0-17.0) g/dL Hct 43.4 (38.0-50.0) % MCV 92.7 (80.0-98.0) fL MCH 29.7 (27.0-32.0) pg MCHC 32.0 (31.0-37.0) g/dL RDW Std Deviation 47.0 (28.0-62.0) fl RDW Coeff of Isaias 14 (11.0-15.0) % Plt Count 260 (150-400) K/uL MPV 10.40 (7.40-12.00) fL Neut % (Auto) 7.3 L (48.0-80.0) % Lymph % (Auto) 90.5 H (16.0-40.0) % Mcdonough % (Auto) 2.0 (0.0-15.0) % Eos % (Auto) 0.0 (0.0-7.0) % Baso % (Auto) 0.2 (0.0-1.5) % Neut # (Auto) 10.1 H (1.4-5.7) K/uL Lymph # (Auto) 126.0 H (0.6-2.4) K/uL Mcdonough # (Auto) 2.8 H (0.0-0.8) K/uL Eos # (Auto) 0.0 (0.0-0.7) K/uL Baso # (Auto) 0.3 H (0.0-0.1) K/uL Nucleated RBC % 0.0 /100WBC Nucleated RBCs # 0 K/uL Sodium 140 (136-148) mmol/L Potassium 4.6 (3.5-5.1) mmol/L Chloride 105 (98-107) mmol/L Carbon Dioxide 29.3 (21.0-32.0) mmol/L BUN 22 H (7.0-18.0) mg/dL Creatinine 0.9 (0.8-1.3) mg/dL Est Cr Clr Drug Dosing 70.72 mL/min Estimated GFR (MDRD) > 60.0 ml/min Glucose 133 H (74-106) mg/dL Calcium 8.5 (8.5-10.1) mg/dL Phosphorus 3.2 (2.6-4.7) mg/dL Troponin I < 0.050 (0.000-0.056) ng/mL Med Orders - Current: Current Medications Acetaminophen (Tylenol) 650 mg PO Q4H PRN PRN Reason: Pain (Mild 1-3)/fever Hydrocodone Bitart/Acetaminophen ([place] 325-5 Mg) 1 tab PO Q4H PRN PRN Reason: Pain Aspirin (Aspirin) 81 mg PO DAILY COUNTS INCLUDE 234 BEDS AT THE [facility] Last Admin: 05/11/17 08:00 Dose: 81 mg Heparin Sodium (Porcine) (Heparin Sodium) 5,000 units SUBCUT Q12H COUNTS INCLUDE 234 BEDS AT THE [facility] Last Admin: 05/10/17 23:39 Dose: Not Given Sodium Chloride (Normal Saline) 1,000 mls @ 75 mls/hr IV ONETIME ONE Stop: 05/11/17 17:04 Last Admin: 05/11/17 04:03 Dose: 125 mls/hr Metoprolol Tartrate (Lopressor) 50 mg PO BID COUNTS INCLUDE 234 BEDS AT THE [facility] Last Admin: 05/11/17 06:35 Dose: 50 mg Ondansetron HCl (Zofran Odt) 4 mg PO Q4H PRN PRN Reason: nausea, able to take PO Last Admin: 05/11/17 07:30 Dose: 4 mg Ondansetron HCl (Zofran) 4 mg IVPUSH Q4H PRN PRN Reason: Nausea Polyethylene Glycol (Miralax) 17 gm PO DAILY PRN PRN Reason: Constipation Sodium Chloride (Saline Flush) 10 ml FLUSH ASDIRECTED PRN PRN Reason: Keep Vein Open Sodium Chloride (Saline Flush) 2.5 ml FLUSH ASDIRECTED PRN PRN Reason: Keep Vein Open Temazepam (Restoril) 15 mg PO BEDTIME PRN PRN Reason: Sleep Discontinued Medications Hydrocodone Bitart/Acetaminophen ([place] 325-5 Mg) 1 tab PO Q4H PRN PRN Reason: Pain (moderate 4-6) Diazepam (Valium) 2 mg PO ONETIME ONE Stop: 05/11/17 07:33 Last Admin: 05/11/17 08:00 Dose: 2 mg Diltiazem HCl (Diltiazem) 20 mg IVPUSH ONETIME ONE Stop: 05/10/17 21:47 Last Admin: 05/10/17 21:52 Dose: 20 mg Enoxaparin Sodium (Lovenox) 80 mg SUBCUT ONETIME ONE Stop: 05/10/17 22:11 Last Admin: 05/10/17 23:38 Dose: 40 mg Hydromorphone HCl (Dilaudid) 1 mg IVPUSH Q2H PRN PRN Reason: Pain (severe 7-10) Last Admin: 05/10/17 23:54 Dose: 1 mg Hydromorphone HCl (Dilaudid) 2 mg PO Q4H PRN PRN Reason: Pain Sodium Chloride (Normal Saline) 1,000 mls @ 999 mls/hr IV STAT ONE Stop: 05/10/17 22:56 Last Admin: 05/10/17 22:03 Dose: 999 mls/hr Magnesium Sulfate 4 gm/ Premix 100 mls @ 25 mls/hr IV ONETIME ONE Stop: 05/11/17 03:30 Last Admin: 05/10/17 23:44 Dose: 25 mls/hr - Exam Quality Assessment: Supplemental Oxygen, DVT Prophylaxis General: Alert, Oriented, Cooperative, No Acute Distress HEENT: Pupils Equal, Pupils Reactive, EOMI, Mucous Membr. Moist/Erma Neck: Supple, Trachea Midline, No JVD Lungs: Clear to Auscultation, Normal Respiratory Effort Cardiovascular: Regular Rate, Irregular Rhythm, Murmurs GI/Abdominal Exam: Normal Bowel Sounds, Soft, Non-Tender, No Organomegaly, No Distention (Male) Exam: Deferred Back Exam: Normal Inspection Extremities: Normal Inspection, Non-Tender, No Pedal Edema, Normal Capillary Refill Peripheral Pulses: 2+: Radial (L), Radial (R), Posterior Tibial (L), Posterior Tibial (R), Dorsalis Pedis (L), Dorsalis Pedis (R) Skin: Warm, Dry, Intact Neurological: No New Focal Deficit Psy/Mental Status: Alert, Normal Affect, Normal Mood - Problem List & Annotations (1) New onset atrial fibrillation SNOMED Code(s): 68886568 Code(s): I48.91 - UNSPECIFIED ATRIAL FIBRILLATION Status: Acute Priority : High Current Visit: Yes - Problem List Review Problem List Initiated/Reviewed/Updated: Yes - My Orders Last 24 Hours: My Active Orders 05/10/17 22:38 Patient Status [ADT] Routine Oxygen Therapy [RC] PRN Up With Assistance [RC] ASDIRECTED Vital Signs [RC] Q4H Echo 2D wo Cont [US] Stat Acetaminophen [Tylenol] 650 mg PO Q4H PRN Ondansetron [Zofran ODT] 4 mg PO Q4H PRN Ondansetron [Zofran] 4 mg IVPUSH Q4H PRN Polyethylene Glycol 3350 [MiraLAX] 17 gm PO DAILY PRN Temazepam [Restoril] 15 mg PO BEDTIME PRN Resuscitation Status Routine 05/10/17 22:41 Antiembolic Devices [RC] PER UNIT ROUTINE Sequential Compression Device [OM.PC] Per Unit Routine 05/10/17 22:45 Heparin Sodium 5,000 units SUBCUT Q12H 05/10/17 22:53 Telemetry Monitoring [Cardiac Monitoring] [RC] . DIRECTED 05/10/17 Dinner Heart Healthy Diet [DIET] 05/11/17 03:45 Sodium Chloride 0.9% [Normal Saline] 1,000 ml IV ONETIME 05/11/17 06:30 Metoprolol Tartrate [Lopressor] 50 mg PO BID 05/11/17 07:42 Acetaminophen/HYDROcodone [[place] 325-5 MG] 1 tab PO Q4H PRN 05/11/17 09:00 Aspirin 81 mg PO DAILY 05/12/17 05:11 BASIC METABOLIC PANEL,BMP [CHEM] AM CBC WITH AUTO DIFF [HEME] AM 05/13/17 05:11 BASIC METABOLIC PANEL,BMP [CHEM] AM CBC WITH AUTO DIFF [HEME] AM - Plan Plan:: 72-year-old male admitted new-onset A. fib with RVR with past medical history of CLL but no cardiopulmonary history. New-onset A. fib: Have discussed case with Dr. Khalil, engine inspector and talked with patient and Dr. Khalil at the same time. Dr. Khalil recommends echocardiogram which has been ordered. He also recommends anticoagulation with Eliquis and follow-up with him for possible conversion in 3 weeks. Okay with Lopressor 50 mg bid which was started this am. Did repeat troponin this am secondary to chest tightness which was unremarkable no significant EKG changes seen associated with acute ischemia. Patient did receive an injection in his back on Friday by Dr. Yusuf. Did consult Anesthesia as to time frame that anticoagulation could be started. Also researched timing and most recommend 5-6 hrs after injection unless there was a traumatic tap. Have called and left a message with Dr. Yusuf to contact me to let me know if injection was not traumatic. However, will be able to start Eliquis this evening regardless as then it will be greater than 48 hrs. VTE: Heparin, SCD Dispo: 1-2 days pending. Will need follow-up with cardiology.
--- NOTE | 2017-05-11 09:49 | PCM.SN ---
- Free Text/Narrative Note: Consulted by Dr Lizarraga Ref: Epidural steriod injection and starting anticoagulation. Patient had received an epidural steroid injection 05/09/[address] Stratton. After reviewing current guidelines specifically regarding Eliquis ; currently recommendations are to hold administration for 4-6 hours following epidural injection and to hold administration for up to 48hrs if epidural injection was traumatic. I communicated this with the patient and with Dr Lizarraga.
[2017-05-11] MEDS: Heparin Sodium 5,000 Units/ML Vial SUBCUT SCH (10:23)
[2017-05-11] MEDS: Acetaminophen/HYDROcodone 325-5 MG Tab PO PRN ×2 (14:07→21:10)
[2017-05-11] MEDS ORDERED: Diazepam 2 MG Tab PO PRN (15:27)
[2017-05-11] MEDS ORDERED: Digoxin 500 MCG/2 ML Amp IVPUSH STA (19:52)
[2017-05-11] MEDS ORDERED: LORazepam 2 MG/ML SDV IVPUSH PRN (19:55)
[2017-05-11] MEDS: Apixaban 5 MG Tab PO SCH (20:22)
[2017-05-11] MEDS ORDERED: Metoprolol Tartrate 5 MG/5 ML SDV IVPUSH PRN (21:09)
[2017-05-12] MEDS ORDERED: Digoxin 500 MCG/2 ML Amp IVPUSH ONE (02:00)
[2017-05-12] MEDS: Acetaminophen/HYDROcodone 325-5 MG Tab PO PRN ×2 (02:26→08:26)
[2017-05-12 05:56] LABS: CHLORIDE,CL 104 mmol/L (98-107); SODIUM,NA 142 mmol/L (136-148)
[2017-05-12 08:17] VITALS: BP 110/63
[2017-05-12] MEDS ORDERED: Digoxin 125 MCG Tab PO SCH (09:00)
[2017-05-12] MEDS: Apixaban 5 MG Tab PO SCH (09:51)
[2017-05-12] MEDS: Aspirin 81 MG Tab.Chew PO SCH (09:51)
[2017-05-12] MEDS: Metoprolol Tartrate 50 MG Tab PO SCH (09:51)
--- NOTE | 2017-05-12 10:41 | PCM.SN ---
- Free Text/Narrative Note: I spoke with patient and examined him. I reviewed chart. I spoke with DR Tate who is the resident physician following him and I agree with management. Dr Lugo knows about his elevated wbc. I spoke with him about it and he declines oncology consult.
--- NOTE | 2017-05-12 14:59 | CR ---
EXAM DATE: 05/10/17 PATIENT'S AGE: 72 Patient: KRYSTLE OTERO Facility: [place], [place] Site . Site : 1945 Study: XRay Chest [id number]/10/2018 10:18:05 PM Ordering Physician: Doctor Christie Final Report: INDICATION: afib TECHNIQUE: Chest 1 view. COMPARISON: None. FINDINGS: Cardiovascular and mediastinum: Heart size and vasculature are normal in caliber and appearance. Mediastinum is within normal limits. Lungs and pleural space: Lungs are clear. No sign of infiltrate or mass. No sign of pleural effusion. No pneumothorax. Bones and soft tissues: No significant findings. IMPRESSION: Unremarkable chest. Dictated by: Dioni Valenzuela MD @ 05/10/2017 22:30:01 (Electronic Signature) Report Signed by Proxy. GENARO
--- NOTE | 2017-05-14 15:32 | ECHO ---
EXAM DATE: 05/10/17 PATIENT'S AGE: 72 The echocardiogram report can be seen in this patient's EMR (Electronic Medical Record) in the Reports section. The report has also been scanned into PACs. GENARO
--- NOTE | 2017-05-16 16:52 | PCM.DCSUM1 ---
Discharge Summary - Hospital Course HPI Initial Comments: Discharge Summary Date of admission: 05/10/2017 Date of discharge: 05/12/2017 Admitting diagnosis: #1. New onset atrial fibrillation with RVR #2. Past medical history of CLL, sleep apnea unassessed #3. #4. #5. Discharge diagnoses: #1. New onset atrial fibrillation with RVR now converted to sinus rhythm #2. Past medical history of CLL, and undiagnosed sleep apnea #3. #4. #5. Consultations: Cardiology, Procedures: None Hospitalization course: She was admitted to the ICU on 05/10/2017 secondary to new onset atrial fibrillation. Patient was placed on Lopressor initially, however he still continued to be in atrial fibrillation. Due to significant past medical history of CLL, and back pain patient had recently gotten a injection into his spine, due to this procedure didn't need to confirm whether or not this is a traumatic tap was assessed before starting one of the new and Anthony score however did not indicate that the patient actually needed to be on blood thinners long-term. . 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 Patient was stable when assessed on 05/12/2017, he insisted on going home and being discharged. Patient stated that he would follow up with Dr. Galloway in [place]. Cardiology suggested after a thorough discussion with the patient that the patient can be initially started on Lopressor 25 mg daily, aspirin, and have a outpatient sleep study done for assessment for sleep apnea. Disposition on discharge: home Condition on discharge: Stable Discharge medications: Continuation of home medication, Lopressor 25 mg daily, aspirin 81 mg daily. Follow-up instructions: Dr. Nilesh Rider, cardiology [place]. - Discharge Data Discharge Date: 05/12/17 Discharge Disposition: Home, Self-Care 01 Condition: Fair - Patient Summary/Data Consults: Consultations 05/11/17 12:48 Consult to Physician [CONS] Routine - Patient Instructions Diet: Heart Healthy Diet Activity: As Tolerated Showering/Bathing: May Shower - Discharge Plan Prescriptions/Med Rec: Metoprolol Tartrate [Lopressor] 25 mg PO DAILY 30 Days #30 tab Home Medications: Home Meds Acetaminophen/HYDROcodone [[place] 325-5 MG] 1 - 2 tab PO Q4H PRN #80 tablet 10/04 [Rx] Aspirin 81 mg PO DAILY tab.chew 05/12/17 [Rx] Metoprolol Tartrate [Lopressor] 25 mg PO DAILY 30 Days #30 tab 05/12/17 [Rx] Patient Handouts: Aspirin, ASA chewable tablets, Metoprolol tablets, Atrial Fibrillation, [id number] Referrals: Anna Zayas MD [Physician] - 05/26/17 1:30 pm Tj Galloway MD [Ordering Only Provider] - - Discharge Summary/Plan Comment DC Time >30 min.: No - Patient Data Vitals - Most Recent: Last Vital Signs Temp 36.3 C 05/12/17 08:00 Pulse 65 05/12/17 09:51 Resp 19 05/12/17 08:00 BP 110/63 05/12/17 09:51 Pulse Ox 96 05/12/17 08:00 Weight - Most Recent: 82.554 kg Med Orders - Current: Current Medications Discontinued Medications Acetaminophen (Tylenol) 650 mg PO Q4H PRN PRN Reason: Pain (Mild 1-3)/fever Hydrocodone Bitart/Acetaminophen ([place] 325-5 Mg) 1 tab PO Q4H PRN PRN Reason: Pain (moderate 4-6) Hydrocodone Bitart/Acetaminophen ([place] 325-5 Mg) 1 tab PO Q4H PRN PRN Reason: Pain Last Admin: 05/12/17 08:26 Dose: 1 tab Apixaban (Eliquis) 5 mg PO BID [facility] Last Admin: 05/12/17 09:51 Dose: Not Given Aspirin (Aspirin) 81 mg PO DAILY [facility] Last Admin: 05/12/17 09:51 Dose: Not Given Diazepam (Valium) 2 mg PO ONETIME ONE Stop: 05/11/17 07:33 Last Admin: 05/11/17 08:00 Dose: 2 mg Diazepam (Valium) 2 mg PO TID PRN PRN Reason: Anxiety Diazepam (Valium) 2 mg PO STAT ONE Stop: 05/11/17 20:13 Last Admin: 05/11/17 20:21 Dose: 2 mg Digoxin (Lanoxin) 250 mcg IVPUSH STAT STA Stop: 05/11/17 19:53 Last Admin: 05/11/17 20:02 Dose: 250 mcg Digoxin (Lanoxin) 250 mcg IVPUSH ONETIME ONE Stop: 05/12/17 02:01 Last Admin: 05/12/17 02:16 Dose: 250 mcg Digoxin (Lanoxin) 125 mcg PO DAILY [facility] Last Admin: 05/12/17 09:51 Dose: Not Given Diltiazem HCl (Diltiazem) 20 mg IVPUSH ONETIME ONE Stop: 05/10/17 21:47 Last Admin: 05/10/17 21:52 Dose: 20 mg Enoxaparin Sodium (Lovenox) 80 mg SUBCUT ONETIME ONE Stop: 05/10/17 22:11 Last Admin: 05/10/17 23:38 Dose: 40 mg Heparin Sodium (Porcine) (Heparin Sodium) 5,000 units SUBCUT Q12H [facility] Last Admin: 05/11/17 10:23 Dose: Not Given Hydromorphone HCl (Dilaudid) 1 mg IVPUSH Q2H PRN PRN Reason: Pain (severe 7-10) Last Admin: 05/10/17 23:54 Dose: 1 mg Hydromorphone HCl (Dilaudid) 2 mg PO Q4H PRN PRN Reason: Pain Sodium Chloride (Normal Saline) 1,000 mls @ 999 mls/hr IV STAT ONE Stop: 05/10/17 22:56 Last Admin: 05/10/17 22:03 Dose: 999 mls/hr Magnesium Sulfate 4 gm/ Premix 100 mls @ 25 mls/hr IV ONETIME ONE Stop: 05/11/17 03:30 Last Admin: 05/10/17 23:44 Dose: 25 mls/hr Sodium Chloride (Normal Saline) 1,000 mls @ 75 mls/hr IV ONETIME ONE Stop: 05/11/17 17:04 Last Infusion: 05/11/17 07:00 Dose: 75 mls/hr Lorazepam (Ativan) 1 mg IVPUSH Q4H PRN PRN Reason: Anxiety Metoprolol Tartrate (Lopressor) 50 mg PO BID [facility] Last Admin: 05/12/17 09:51 Dose: Not Given Metoprolol Tartrate (Lopressor) 5 mg IVPUSH Q2H PRN PRN Reason: Other Stop: 05/12/17 01:16 Ondansetron HCl (Zofran Odt) 4 mg PO Q4H PRN PRN Reason: nausea, able to take PO Last Admin: 05/11/17 23:40 Dose: 4 mg Ondansetron HCl (Zofran) 4 mg IVPUSH Q4H PRN PRN Reason: Nausea Polyethylene Glycol (Miralax) 17 gm PO DAILY PRN PRN Reason: Constipation Sodium Chloride (Saline Flush) 10 ml FLUSH ASDIRECTED PRN PRN Reason: Keep Vein Open Sodium Chloride (Saline Flush) 2.5 ml FLUSH ASDIRECTED PRN PRN Reason: Keep Vein Open Temazepam (Restoril) 15 mg PO BEDTIME PRN PRN Reason: Sleep Last Admin: 05/11/17 23:40 Dose: 15 mg *Q Meaningful Use (DIS) - VTE *Q VTE Criteria *Q: - Stroke *Q Stroke Criteria *Q: - AMI *Q AMI Criteria *Q:
== END 2017-05-12 10:44 | disposition home or self-care (01) ==
LOC: MW.ED 21:40 → MW.ICU 22:10 → MW.ED 22:25
PROVIDERS: ADMIT Family Medicine; ATTEND Family Medicine
DX: I48.91 Unspecified atrial fibrillation (principal); C91.10 Chronic lymphocytic leukemia of B-cell type not having achieved remission; Z88.5 Allergy status to narcotic agent
CPT/HCPCS: 36415; 71045; 80048; 80053; 83735; 84100; 84443; 84484; 85025; 85610; 93005; 93306; 96374; 99285; A9270; J1160; J1170; J1650; J3475; J3490; J7040; 96361; 96365; 96366; 96372; 96375; 96376; 99284; G0378

== ENCOUNTER 2017-05-29 12:05 | Day surgery (SDC) | payer BC, MEDICARE ==
[2017-05-29] MEDS ORDERED: Betamethasone Acetate/Betamethasone Sod Phosphate 30 MG/5 ML MDV ONE (13:27)
[2017-05-29] MEDS ORDERED: Ropivacaine 0.5% 5 MG/ML 30 ML SDV ONE (13:28)
[2017-05-29] MEDS ORDERED: Iopamidol 408 MG/ML 50 ML SDV ONE (13:28)
[2017-05-29] MEDS ORDERED: Lactated Ringers 1,000 ML IV SCH (14:45)
--- NOTE | 2017-05-29 15:03 | OR ---
SURGEON: Brittney Yusuf D.O. DATE OF PROCEDURE: 05/29/2017 OR STAFF PRESENT: 1. Lucian De Oliveira RN. 2. Piter Gonzalez RN. 3. Daryl Rivera RT. WOUND CLASSIFICATION: I. PREOPERATIVE DIAGNOSES: 1. Post lumbar back surgery syndrome . 2. Lumbar spinal stenosis. 3. Lumbar radiculopathy. 4. Lumbar DDD, multilevel ( L2-3,L3-4 L4-5 and L5-S1) 5. Lumbar spondylosis POSTOPERATIVE DIAGNOSES: 1. same as pre-op PROCEDURES PERFORMED: 1. Interlaminar lumbar epidural steroid at L2-L3. 2. Fluoroscopic guidance for needle placement. 3. Local only. SCREENING QUESTIONS: The patient answered "no" to all of the following questions: 1. Are you allergic to latex? 2. Do you have a bleeding disorder? 3. Do you have any current local or systemic infections? 4. Are you taking any anti-inflammatories or blood thinners? baby ASA 5. Do you have any joint replacements, heart valve replacements, or a pacemaker? DESCRIPTION OF PROCEDURE: The patient had the procedure thoroughly explained including all possible risks, benefits and alternatives. Consent was signed in my clinic indicating understanding and willingness to proceed. The patient presented to [facility] and was escorted to the dressing room to disrobe and change into a hospital gown. Preoperative vital signs were taken and stable. The patient was brought back to the procedure room and placed in the prone position on the procedure room table. A pillow was placed under the hips in order to flatten the lumbar lordosis. The back was prepped with ChloraPrep and sterilely draped. All personnel in the operating room were dressed in appropriate attire including surgical scrubs, head and shoe covers. This was to ensure sterility while in the treatment room. During the time fluoroscopy was in use, all personnel in the operating room wore lead szymanski with thyroid collars. Sterile technique was used throughout the procedure. The patient was awake and conversant throughout the procedure. There was no evidence of infection at the site of needle insertion. Skeletal landmarks were identified under fluoroscopy for the lumbar epidural. Skin was anesthetized with 2% lidocaine with a sterile 27-gauge 1.5 inch needle. Then a 20-gauge Tuohy epidural needle was placed in the epidural space with loss of resistance technique under fluoroscopic guidance. No heme, cerebrospinal fluid, or paresthesias were noted. Isovue-200 contrast dye was injected in 0.2 cubic centimeter increments and seen to outline the epidural space in both AP and lateral views. There was no intravascular flow pattern observed under live fluoroscopy. Then 12 milligrams of Celestone was slowly injected after negative aspiration. Then 2 cc 0.5% ropivicaine with 1 cc PFNS was injected after negative aspiration. The patient tolerated the procedure but verbalized some back pain and frontal headache discomfort post procedure. Pillows were removed from abdomen with improvement. Vital signs were stable during and after the procedure. The staff escorted the patient to the recovery area and the patient was in stable condition. Headache improved. IV was started and he was given IVF, 1 L LR, as he reported feeling dehydrated and bilateral lower extremities weakness Also epidual caused a saddle block, level at L5-S1. He had BLE weakness secondary to local with steriod in epidural. He rested until saddle block resoved. He remained in stable condition and after a brief stay in the recovery room monitored by the nurse, he was discharged to home. The patient was given both oral and written discharge and follow up instructions with recommendation to follow up given for 2-3 weeks and by phone in the morning. The patient voiced understanding including understanding of those signs and symptoms that would require emergency care. The patient knows how to contact the office if there are any additional problems or questions in the meantime. PREOPERATIVE PAIN: 2 to 6/10. POSTOPERATIVE PAIN: 0/10. FOLLOWUP: Follow up in Pain Clinic in 2-3 weeks. TORREY / BRITNEY /[id number] GENARO
== END 2017-05-29 16:45 ==
LOC: MW.SDS 12:05
PROVIDERS: ATTEND Anesthesiology
DX: M48.061 Spinal stenosis, lumbar region without neurogenic claudication (principal); M96.1 Postlaminectomy syndrome, not elsewhere classified; M51.16 Intervertebral disc disorders with radiculopathy, lumbar region; M51.37 Other intervertebral disc degeneration, lumbosacral region; M47.26 Other spondylosis with radiculopathy, lumbar region
CPT/HCPCS: 62323; J0702; J2795; J7120; Q9966

== ENCOUNTER 2020-05-20 22:08 | Observation (INO) | payer BC ==
[2020-05-20] MEDS ORDERED: Sodium Chloride 0.9% 2.5 ML Syringe FLUSH PRN (22:21)
[2020-05-20] MEDS ORDERED: Sodium Chloride 0.9% 10 ML Syringe FLUSH PRN (22:21)
[2020-05-20] MEDS ORDERED: Ondansetron 4 MG/2 ML SDV IVPUSH ONE (22:23)
[2020-05-20] MEDS ORDERED: Meperidine PF 50 MG/ML Syringe IVPUSH ONE (22:23)
--- NOTE | 2020-05-20 22:25 | EDM.PDOC ---
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 He is not vomiting. He does not have diarrhea. His urine is normal. 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 He also has not had a good response to pain medicine because it causes him to have [employer] side effects. He is able to tolerate meperidine. Review of systems: As per history of present illness and below otherwise all systems reviewed and negative. Past medical history: As per history of present illness and as reviewed below otherwise noncontributory. Surgical history: As per history of present illness and as reviewed below otherwise noncontributory. Social history: No reported history of drug or alcohol abuse. Family history: As per history of present illness and as reviewed below otherwise noncontributory. Physical exam: Constitutional - well developed, well-nourished and in no acute distress HEENT - normocephalic, no evidence of trauma - external nose and mouth normal - no mass in neck and no JVD - mucosae moist EYES - full EOM, PERRL, no icterus - no evidence of inflammation, injection, or drainage Respiratory - no respiratory distress, equal bilateral expansion, lungs clear to auscultation and no abnormal lung sounds Cardiovascular - Regular Rhythm with S1 and S2 appreciated and no murmur, gallop or rub. GI -tender in the middle abdomen and suprapubic areas and hypogastrium right and left. Abdomen soft without distension or organomegaly - normal bowel sounds - no guard or rebound Musculoskeletal no gross deformity of long bones or joints - no tenderness, swelling or edema Neurologic - Alert and oriented times four - CN II-XII grossly intact - motor sensory and coordination symmetrically normal Psychiatric - appropriate mood and affect with normal thought content Hematologic - No petechiae or purpura - mucosa appropriate color and sclera not pale - normal nail bed color and refill Integument - no rash or evidence of trauma - normal turgor Diagnostics: [] Therapeutics: [] Impression: [] Plan: [] Definitive disposition and diagnosis as appropriate pending reevaluation and review of above. upper abdomen Pain Score (Numeric/FACES): 6 - Related Data Allergies Allergy/AdvReac Type Severity Reaction Status Date / Time oxycodone Allergy Chest Pain Verified 05/20/20 22:21 Home Meds: Home Meds Aspirin 81 mg PO DAILY tab.chew 05/12/17 [Rx] Metoprolol Tartrate [Lopressor] 25 mg PO DAILY 30 Days #30 tab 05/12/17 [Rx] Past Medical History Other HEENT History: uses reading glasses Cardiovascular History: Reports: None Respiratory History: Reports: None Gastrointestinal History: Reports: Other (See Below) Other Gastrointestinal History: colon cancer Genitourinary History: Reports: None Musculoskeletal History: Reports: Back Pain, Chronic Neurological History: Reports: Other (See Below) Other Neuro History: hx of motion sickness Psychiatric History: Reports: None Endocrine/Metabolic History: Reports: None Hematologic History: Reports: None Immunologic History: Reports: None Oncologic (Cancer) History: Reports: Colon Dermatologic History: Reports: None - Past Surgical History Head Surgeries/Procedures: Reports: None HEENT Surgical History: Reports: None Other GI Surgeries/Procedures: colon resection Neurological Surgical History: Reports: Laminectomy Oncologic Surgical History: Reports: Other (See Below) Other Oncologic Surgeries/Procedures: colon resection Social & Family History - Family History Family Medical History: No Pertinent Family History - Caffeine Use Caffeine Use: Reports: Coffee ED ROS GENERAL - Review of Systems Review Of Systems: Comprehensive ROS is negative, except as noted in HPI. ED EXAM, GENERAL - Physical Exam Exam: See Below Free Text/Narrative:: My physical exam is in the HPI #1 Interpretation EKG Interpretation Comments: KG sinus rhythm heart rate 68 [place] 56 early transition to are in the precordium. compared to 05/12/2017 no change. Pression no acute injury Course - Vital Signs Text/Narrative:: Remains uncomfortable at 1:[address] Crenshaw and she agreed to put him in observation will come and see him Last Recorded V/S: Last Vital Signs Temp 36.7 C 05/20/20 22:16 Pulse 71 05/21/20 00:20 Resp 18 05/21/20 00:20 BP 155/81 H 05/21/20 00:20 Pulse Ox 95 05/21/20 00:20 - Orders/Labs/Meds Orders: Active Orders 24 hr Category Date Time Status EKG Documentation Completion [RC] AM Care 05/20/20 22:21 Active Sodium Chloride 0.9% [Normal Saline] 1,000 ml Med 05/20/20 22:49 Active IV NOW Sodium Chloride 0.9% [Saline Flush] Med 05/20/20 22:21 Active 10 ml FLUSH ASDIRECTED PRN Sodium Chloride 0.9% [Saline Flush] Med 05/20/20 22:21 Active 2.5 ml FLUSH ASDIRECTED PRN Saline Lock Insert [OM.PC] Stat Oth 05/20/20 22:21 Ordered Medication Orders Sodium Chloride (Normal Saline) 1,000 mls @ 150 mls/hr IV NOW STA Stop: 05/21/20 05:28 Last Admin: 05/20/20 22:50 Dose: 150 mls/hr Documented by: ANA MARIA Sodium Chloride (Sodium Chloride 0.9% 10 Ml Syringe) 10 ml FLUSH ASDIRECTED PRN PRN Reason: Keep Vein Open Sodium Chloride (Sodium Chloride 0.9% 2.5 Ml Syringe) 2.5 ml FLUSH ASDIRECTED PRN PRN Reason: Keep Vein Open Labs: Laboratory Tests 05/20/20 05/20/20 05/20/20 Range/Units 22:20 22:20 22:20 WBC 93.19 H (4.0-11.0) K/uL RBC 4.84 (4.50-5.90) M/uL Hgb 14.2 (13.0-17.0) g/dL Hct 44.4 (38.0-50.0) % MCV 91.7 (80.0-98.0) fL MCH 29.3 (27.0-32.0) pg MCHC 32.0 (31.0-37.0) g/dL RDW Std Deviation 47.2 (28.0-62.0) fl RDW Coeff of Isaias 14 (11.0-15.0) % Plt Count 240 (150-400) K/uL MPV 11.20 (7.40-12.00) fL Add Manual Diff YES Neutrophils % (Manual) 2 L (48.0-80.0) % Lymphocytes % (Manual) 96 H (16.0-40.0) % Monocytes % (Manual) 2 (0.0-15.0) % Nucleated RBC % 0.0 /100WBC Absolute Seg Neuts 1.9 (1.4-5.7) Lymphocytes # (Manual) 89.5 H (0.6-2.4) Monocytes # (Manual) 1.9 H (0.0-0.8) Nucleated RBCs # 0 K/uL Smudge Cells MANY Lactate 0.5 (0.20-2.00) mmol/L Sodium 140 (136-148) mmol/L Potassium 4.1 (3.5-5.1) mmol/L Chloride 104 (98-107) mmol/L Carbon Dioxide 28.1 (21.0-32.0) mmol/L BUN 28 H (7.0-18.0) mg/dL Creatinine 0.9 (0.8-1.3) mg/dL Est Cr Clr Drug Dosing 65.28 mL/min Estimated GFR (MDRD) > 60.0 ml/min Glucose 109 H (74-106) mg/dL Calcium 8.6 (8.5-10.1) mg/dL Total Bilirubin 1.0 (0.2-1.0) mg/dL AST 37 (15-37) IU/L ALT 47 (14-63) IU/L Alkaline Phosphatase 88 (46-116) U/L Troponin I < 0.050 (0.000-0.056) ng/mL Total Protein 6.5 (6.4-8.2) g/dL Albumin 3.8 (3.4-5.0) g/dL Globulin 2.7 (2.6-4.0) g/dL Albumin/Globulin Ratio 1.4 (0.9-1.6) Lipase 93 (73-393) U/L Urine Color Urine Appearance Urine pH (5.0-8.0) Ur Specific [place] (1.001-1.035) Urine Protein (NEGATIVE) mg/dL Urine Glucose (UA) (NEGATIVE) mg/dL Urine Ketones (NEGATIVE) mg/dL Urine Occult Blood (NEGATIVE) Urine Nitrite (NEGATIVE) Urine Bilirubin (NEGATIVE) Urine Urobilinogen (<2.0) EU/dL Ur Leukocyte Esterase (NEGATIVE) SARS-CoV-2 RNA (NITHIN) (NEGATIVE) 05/20/20 05/21/20 Range/Units 22:20 00:10 WBC (4.0-11.0) K/uL RBC (4.50-5.90) M/uL Hgb (13.0-17.0) g/dL Hct (38.0-50.0) % MCV (80.0-98.0) fL MCH (27.0-32.0) pg MCHC (31.0-37.0) g/dL RDW Std Deviation (28.0-62.0) fl RDW Coeff of Isaias (11.0-15.0) % Plt Count (150-400) K/uL MPV (7.40-12.00) fL Add Manual Diff Neutrophils % (Manual) (48.0-80.0) % Lymphocytes % (Manual) (16.0-40.0) % Monocytes % (Manual) (0.0-15.0) % Nucleated RBC % /100WBC Absolute Seg Neuts (1.4-5.7) Lymphocytes # (Manual) (0.6-2.4) Monocytes # (Manual) (0.0-0.8) Nucleated RBCs # K/uL Smudge Cells Lactate (0.20-2.00) mmol/L Sodium (136-148) mmol/L Potassium (3.5-5.1) mmol/L Chloride (98-107) mmol/L Carbon Dioxide (21.0-32.0) mmol/L BUN (7.0-18.0) mg/dL Creatinine (0.8-1.3) mg/dL Est Cr Clr Drug Dosing mL/min Estimated GFR (MDRD) ml/min Glucose (74-106) mg/dL Calcium (8.5-10.1) mg/dL Total Bilirubin (0.2-1.0) mg/dL AST (15-37) IU/L ALT (14-63) IU/L Alkaline Phosphatase (46-116) U/L Troponin I (0.000-0.056) ng/mL Total Protein (6.4-8.2) g/dL Albumin (3.4-5.0) g/dL Globulin (2.6-4.0) g/dL Albumin/Globulin Ratio (0.9-1.6) Lipase (73-393) U/L Urine Color YELLOW Urine Appearance CLEAR Urine pH 7.0 (5.0-8.0) Ur Specific [place] 1.015 (1.001-1.035) Urine Protein NEGATIVE (NEGATIVE) mg/dL Urine Glucose (UA) NEGATIVE (NEGATIVE) mg/dL Urine Ketones NEGATIVE (NEGATIVE) mg/dL Urine Occult Blood NEGATIVE (NEGATIVE) Urine Nitrite NEGATIVE (NEGATIVE) Urine Bilirubin NEGATIVE (NEGATIVE) Urine Urobilinogen 0.2 (<2.0) EU/dL Ur Leukocyte Esterase NEGATIVE (NEGATIVE) SARS-CoV-2 RNA (NITHIN) NEGATIVE (NEGATIVE) Meds: Medications Generic Name Dose Route Start Last Admin Trade Name Freq PRN Reason Stop Dose Admin Sodium Chloride 1,000 mls @ 150 mls/hr 05/20/20 22:49 05/20/20 22:50 Normal Saline IV 05/21/20 05:28 150 mls/hr NOW STA Administration Sodium Chloride 10 ml 05/20/20 22:21 Sodium Chloride 0.9% 10 Ml Syringe FLUSH ASDIRECTED PRN Keep Vein Open Sodium Chloride 2.5 ml 05/20/20 22:21 Sodium Chloride 0.9% 2.5 Ml Syringe FLUSH ASDIRECTED PRN Keep Vein Open Discontinued Medications Generic Name Dose Route Start Last Admin Trade Name Freq PRN Reason Stop Dose Admin Iopamidol 100 ml 05/20/20 23:33 05/20/20 23:33 Iopamidol 755 Mg/Ml 500 Ml Multipack Bottle IVPUSH 05/20/20 23:34 100 ml ONETIME STA Administration Meperidine HCl 50 mg 05/20/20 22:23 05/20/20 22:52 Meperidine Pf 50 Mg/Ml Syringe IVPUSH 05/20/20 22:24 50 mg ONETIME ONE Administration Ondansetron HCl 4 mg 05/20/20 22:23 05/20/20 22:52 Ondansetron 4 Mg/2 Ml Sdv IVPUSH 05/20/20 22:24 4 mg ONETIME ONE Administration Departure - Departure Time of Disposition: 01:18 Disposition: Refer to Observation Condition: Good Clinical Impression: Abdominal pain, Neutropenia, Lymphocytosis, CLL (chronic lymphocytic leukemia) - Discharge Information Referrals: PCP,None [Primary Care Provider] - Forms: ED Department Discharge Sepsis Event Note (ED) - Evaluation Sepsis Screening Result: No Definite Risk - Focused Exam Vital Signs: Vital Signs Temp Pulse Resp BP Pulse Ox 05/21/20 00:20 71 18 155/81 H 95 05/20/20 22:16 36.7 C 66 16 188/84 H 95 - My Orders Last 24 Hours: My Active Orders 05/20/20 22:21 EKG Documentation Completion [RC] AM Sodium Chloride 0.9% [Saline Flush] 10 ml FLUSH ASDIRECTED PRN Sodium Chloride 0.9% [Saline Flush] 2.5 ml FLUSH ASDIRECTED PRN Saline Lock Insert [OM.PC] Stat 05/20/20 22:49 Sodium Chloride 0.9% [Normal Saline] 1,000 ml IV NOW - Assessment/Plan Last 24 Hours: My Active Orders 05/20/20 22:21 EKG Documentation Completion [RC] AM Sodium Chloride 0.9% [Saline Flush] 10 ml FLUSH ASDIRECTED PRN Sodium Chloride 0.9% [Saline Flush] 2.5 ml FLUSH ASDIRECTED PRN Saline Lock Insert [OM.PC] Stat 05/20/20 22:49 Sodium Chloride 0.9% [Normal Saline] 1,000 ml IV NOW
[2020-05-20] MEDS ORDERED: Sodium Chloride 0.9% 100 ML IV SCH (22:30)
[2020-05-20] MEDS ORDERED: Sodium Chloride 0.9% 1,000 ML IV STA (22:49)
[2020-05-20 22:52] LABS: BLOOD UREA NITROGEN,BUN 28 mg/dL (7.0-18.0); CARBON DIOXIDE,CO2 28.1 mmol/L (21.0-32.0); CHLORIDE,CL 104 mmol/L (98-107); GLUCOSE RANDOM 109 mg/dL (74-106); LIPASE 93 U/L (73-393); POTASSIUM,K 4.1 mmol/L (3.5-5.1); SODIUM,NA 140 mmol/L (136-148)
[2020-05-20] MEDS ORDERED: Iopamidol 755 MG/ML 500 ML Multipack Bottle IVPUSH STA (23:33)
--- NOTE | 2020-05-21 00:25 | CR ---
INDICATION: Upper abdominal pain. COMPARISON: CXR 05/10/2017. TECHNIQUE: Single portable AP view of the chest. FINDINGS: The lungs are adequately inflated. No focal consolidation, pneumothorax or effusion. Cardiomediastinal silhouette is unremarkable for an AP view. There are no acute osseous findings. IMPRESSION: Negative AP view of the chest. Dictated by Joseph Dumont MD @ 05/21/2020 12:22:49 AM Dictated by: Joseph Dumont MD @ 05/21/2020 00:23:07 (Electronically Signed)
--- NOTE | 2020-05-21 00:44 | CT ---
INDICATION: Upper abdominal pain. History of CLL. - COMPARISON: CTs 03/02/2020 and 08/09/2015 TECHNIQUE: Axial CT images of the abdomen and pelvis following the uneventful administration of IV contrast. Sagittal and coronal reformatted series were also generated and reviewed. - Total exam DLP 569 mGy-cm. FINDINGS: The lower chest is unremarkable. - Tiny low-attenuation lesions in the liver, most likely benign, unchanged from prior. No new intrahepatic mass or biliary ductal dilatation. The gallbladder, pancreas and adrenal glands are unremarkable. The spleen is mildly enlarged measuring 13.8 cm craniocaudad, unchanged from prior. Symmetric enhancement of the kidneys. Benign bilateral renal cysts. Partially exophytic lesion at the lower pole of the right kidney, technically does not meet CT criteria for a simple cyst, but is unchanged from priors. - Diffuse atherosclerotic calcification. No aneurysm. Severe abdominal and pelvic lymphadenopathy, consistent with known diagnosis of CLL, not appreciably changed from recent CT. This has mass effect on the adjacent bowel. No bowel obstruction or ascites. No focal inflammatory change, perforation or abscess. - The urinary bladder is partially distended, but otherwise unremarkable. Moderately enlarged prostate. No free fluid in the pelvis. - Surgical changes of the lumbar spine. No acute or aggressive osseous findings. IMPRESSION: 1. No acute findings in the abdomen or pelvis. 2. Severe abdominal and pelvic lymphadenopathy, not appreciably changed from prior, and consistent with known diagnosis of CLL. 3. No bowel obstruction or hydronephrosis. 4. Other findings, as above. Dictated by Joseph Dumont MD @ 05/21/2020 12:41:50 AM Please note that all CT scans at this facility use dose modulation, iterative reconstruction, and/or weight-based dosing when appropriate to reduce radiation dose to as low as reasonably achievable. Dictated by: Joseph Dumont MD @ 05/21/2020 00:42:11 (Electronically Signed)
[2020-05-21] MEDS ORDERED: HYDROmorphone 1 MG/ML Syringe IVPUSH ONE ×2 (01:19→16:16)
[2020-05-21] MEDS ORDERED: Sodium Chloride 0.9% 1,000 ML IV SCH (02:00)
[2020-05-21] MEDS ORDERED: Sodium Chloride 0.9% 10 ML SDV IV PRN (02:00)
[2020-05-21] MEDS ORDERED: Pantoprazole 80 MG in Sodium Chloride 0.9% 20 ML IV ONE (02:00)
[2020-05-21] MEDS ORDERED: Sodium Chloride 0.9% 2.5 ML Syringe FLUSH PRN (02:00)
[2020-05-21] MEDS ORDERED: Acetaminophen 325 MG Tab PO PRN (02:00)
[2020-05-21] MEDS ORDERED: diphenhydrAMINE 50 MG/ML SDV IVPUSH PRN (02:00)
[2020-05-21] MEDS ORDERED: Sodium Chloride 0.9% 10 ML Syringe FLUSH PRN (02:00)
[2020-05-21] MEDS ORDERED: Aluminum Hydroxide/Magnesium Hydroxide/Simethicone Susp 30 ML Cup ONE (02:03)
[2020-05-21] MEDS ORDERED: Lidocaine 2% Viscous Solution 15 ML Cup ONE (02:04)
[2020-05-21] MEDS ORDERED: HYDROmorphone/Normal Saline 10 MG/50 ML PCA IV PRN (02:07)
[2020-05-21] MEDS ORDERED: Naloxone 0.4 MG/ML Syringe IVPUSH PRN (02:07)
[2020-05-21] MEDS ORDERED: Alum Hydrox/Mag Hydrox/Simeth 15 ML, Lidocaine 2% 5 ML PO ONE ×4 (02:07→02:08)
--- NOTE | 2020-05-21 02:23 | PCM.HP.2 ---
H&P History of Present Illness - General Date of Service: 05/21/20 Admit Problem/Dx: Admission Diagnosis/Problem Admission Diagnosis/Problem Abdominal pain Source of Information: Patient, Family History Limitations: Reports: No Limitations - History of Present Illness Initial Comments - Free Text/Narative: Patient is a 75 year old male who presents to the ER with increased abdominal pain. It started 3 days ago and has progressively gotten worse. He describes it as upper abdominal pain that is sharp. His past medical history is significant for CLL, atrial fibrillation, and colon cancer s/p resection many years ago. His last colonoscopy was 6-7 years ago and was normal. He was last treated for his CLL 3 months ago. At the time his Neutrophil % was in the 70s. He denies fever chills chest pain nausea vomiting diarrhea hematochezia or melena. He has been traveling recently but denies any specific infectious contacts. His vitals on admission showed him to be hypertensive. He did not take his evening dose of metoprolol. In the past the only pain medication that helped him was demerol. He was given this in the ER with no improvement in his pain. He was given 0.5mg of dilaudid with some relief. His CBC showed a WBC of 93.19 with a neutrophil % of 2 and lymphocyte % of 96. Chest XR was normal. His abdominal CT showed severe lymphadenopathy that is unchanged from previous. upper abdomen Pain Score (Numeric/FACES): 6 - Related Data Allergies/Adverse Reactions: Allergies Allergy/AdvReac Type Severity Reaction Status Date / Time oxycodone Allergy Chest Pain Verified 05/20/20 22:21 Home Medications: Home Meds Aspirin 81 mg PO DAILY tab.chew 05/12/17 [Rx] Metoprolol Tartrate [Lopressor] 25 mg PO DAILY 30 Days #30 tab 05/12/17 [Rx] Past Medical History Other HEENT History: uses reading glasses Cardiovascular History: Reports: None Respiratory History: Reports: None Gastrointestinal History: Reports: Other (See Below) Other Gastrointestinal History: colon cancer Genitourinary History: Reports: None Musculoskeletal History: Reports: Back Pain, Chronic Neurological History: Reports: Other (See Below) Other Neuro History: hx of motion sickness Psychiatric History: Reports: None Endocrine/Metabolic History: Reports: None Hematologic History: Reports: None Immunologic History: Reports: None Oncologic (Cancer) History: Reports: Colon Dermatologic History: Reports: None - Past Surgical History Head Surgeries/Procedures: Reports: None HEENT Surgical History: Reports: None Other GI Surgeries/Procedures: colon resection Neurological Surgical History: Reports: Laminectomy Oncologic Surgical History: Reports: Other (See Below) Other Oncologic Surgeries/Procedures: colon resection Social & Family History - Family History Family Medical History: No Pertinent Family History - Caffeine Use Caffeine Use: Reports: None - Recreational Drug Use Recreational Drug Use: No H&P Review of Systems - Review of Systems: Review Of Systems: Comprehensive ROS is negative, except as noted in HPI. Exam - Exam Exam: See Below - Vital Signs Vital Signs: Last Vital Signs Temp 36.7 C 05/20/20 22:16 Pulse 71 05/21/20 00:20 Resp 18 05/21/20 00:20 BP 155/81 H 05/21/20 00:20 Pulse Ox 95 05/21/20 00:20 Weight: 81.647 kg - Exam General: Alert, Oriented, Mild Distress HEENT: Conjunctiva Clear, Mucosa Moist & Mize, Posterior Pharynx Clear Neck: Supple, Trachea Midline Lungs: Clear to Auscultation, Normal Respiratory Effort Cardiovascular: Regular Rate, Regular Rhythm GI/Abdominal Exam: Soft, Non-Tender, No Distention, No Mass Extremities: Normal Inspection, Normal Range of Motion, Non-Tender, No Pedal Edema - Patient Data Lab Results Last 24 hrs: Laboratory Results - last 24 hr 05/20/20 05/20/20 05/20/20 Range/Units 22:20 22:20 22:20 WBC 93.19 H (4.0-11.0) K/uL RBC 4.84 (4.50-5.90) M/uL Hgb 14.2 (13.0-17.0) g/dL Hct 44.4 (38.0-50.0) % MCV 91.7 (80.0-98.0) fL MCH 29.3 (27.0-32.0) pg MCHC 32.0 (31.0-37.0) g/dL RDW Std Deviation 47.2 (28.0-62.0) fl RDW Coeff of Isaias 14 (11.0-15.0) % Plt Count 240 (150-400) K/uL MPV 11.20 (7.40-12.00) fL Add Manual Diff YES Neutrophils % (Manual) 2 L (48.0-80.0) % Lymphocytes % (Manual) 96 H (16.0-40.0) % Monocytes % (Manual) 2 (0.0-15.0) % Nucleated RBC % 0.0 /100WBC Absolute Seg Neuts 1.9 (1.4-5.7) Lymphocytes # (Manual) 89.5 H (0.6-2.4) Monocytes # (Manual) 1.9 H (0.0-0.8) Nucleated RBCs # 0 K/uL Smudge Cells MANY Lactate 0.5 (0.20-2.00) mmol/L Sodium 140 (136-148) mmol/L Potassium 4.1 (3.5-5.1) mmol/L Chloride 104 (98-107) mmol/L Carbon Dioxide 28.1 (21.0-32.0) mmol/L BUN 28 H (7.0-18.0) mg/dL Creatinine 0.9 (0.8-1.3) mg/dL Est Cr Clr Drug Dosing 65.28 mL/min Estimated GFR (MDRD) > 60.0 ml/min Glucose 109 H (74-106) mg/dL Calcium 8.6 (8.5-10.1) mg/dL Total Bilirubin 1.0 (0.2-1.0) mg/dL AST 37 (15-37) IU/L ALT 47 (14-63) IU/L Alkaline Phosphatase 88 (46-116) U/L Troponin I < 0.050 (0.000-0.056) ng/mL Total Protein 6.5 (6.4-8.2) g/dL Albumin 3.8 (3.4-5.0) g/dL Globulin 2.7 (2.6-4.0) g/dL Albumin/Globulin Ratio 1.4 (0.9-1.6) Lipase 93 (73-393) U/L Urine Color Urine Appearance Urine pH (5.0-8.0) Ur Specific Thompson (1.001-1.035) Urine Protein (NEGATIVE) mg/dL Urine Glucose (UA) (NEGATIVE) mg/dL Urine Ketones (NEGATIVE) mg/dL Urine Occult Blood (NEGATIVE) Urine Nitrite (NEGATIVE) Urine Bilirubin (NEGATIVE) Urine Urobilinogen (<2.0) EU/dL Ur Leukocyte Esterase (NEGATIVE) SARS-CoV-2 RNA (NITHIN) (NEGATIVE) 05/20/20 05/21/20 Range/Units 22:20 00:10 WBC (4.0-11.0) K/uL RBC (4.50-5.90) M/uL Hgb (13.0-17.0) g/dL Hct (38.0-50.0) % MCV (80.0-98.0) fL MCH (27.0-32.0) pg MCHC (31.0-37.0) g/dL RDW Std Deviation (28.0-62.0) fl RDW Coeff of Isaias (11.0-15.0) % Plt Count (150-400) K/uL MPV (7.40-12.00) fL Add Manual Diff Neutrophils % (Manual) (48.0-80.0) % Lymphocytes % (Manual) (16.0-40.0) % Monocytes % (Manual) (0.0-15.0) % Nucleated RBC % /100WBC Absolute Seg Neuts (1.4-5.7) Lymphocytes # (Manual) (0.6-2.4) Monocytes # (Manual) (0.0-0.8) Nucleated RBCs # K/uL Smudge Cells Lactate (0.20-2.00) mmol/L Sodium (136-148) mmol/L Potassium (3.5-5.1) mmol/L Chloride (98-107) mmol/L Carbon Dioxide (21.0-32.0) mmol/L BUN (7.0-18.0) mg/dL Creatinine (0.8-1.3) mg/dL Est Cr Clr Drug Dosing mL/min Estimated GFR (MDRD) ml/min Glucose (74-106) mg/dL Calcium (8.5-10.1) mg/dL Total Bilirubin (0.2-1.0) mg/dL AST (15-37) IU/L ALT (14-63) IU/L Alkaline Phosphatase (46-116) U/L Troponin I (0.000-0.056) ng/mL Total Protein (6.4-8.2) g/dL Albumin (3.4-5.0) g/dL Globulin (2.6-4.0) g/dL Albumin/Globulin Ratio (0.9-1.6) Lipase (73-393) U/L Urine Color YELLOW Urine Appearance CLEAR Urine pH 7.0 (5.0-8.0) Ur Specific Thompson 1.015 (1.001-1.035) Urine Protein NEGATIVE (NEGATIVE) mg/dL Urine Glucose (UA) NEGATIVE (NEGATIVE) mg/dL Urine Ketones NEGATIVE (NEGATIVE) mg/dL Urine Occult Blood NEGATIVE (NEGATIVE) Urine Nitrite NEGATIVE (NEGATIVE) Urine Bilirubin NEGATIVE (NEGATIVE) Urine Urobilinogen 0.2 (<2.0) EU/dL Ur Leukocyte Esterase NEGATIVE (NEGATIVE) SARS-CoV-2 RNA (NITHIN) NEGATIVE (NEGATIVE) Result Diagrams: 05/20/20 22:20 05/20/20 22:20 Sepsis Event Note - Evaluation Sepsis Screening Result: No Definite Risk - Focused Exam Vital Signs: Vital Signs Temp Pulse Resp BP Pulse Ox 05/21/20 00:20 71 18 155/81 H 95 05/20/20 22:16 36.7 C 66 16 188/84 H 95 - Problem List (1) Abdominal pain SNOMED Code(s): 83499652 ICD Code: R10.9 - UNSPECIFIED ABDOMINAL PAIN Status: Acute Current Visit: Yes (2) CLL (chronic lymphocytic leukemia) SNOMED Code(s): 39033078 ICD Code: C91.10 - CHRONIC LYMPHOCYTIC LEUK OF B-CELL TYPE NOT ACHIEVE REMIS Status: Acute Current Visit: Yes (3) Lymphocytosis SNOMED Code(s): 99964119 ICD Code: D72.820 - LYMPHOCYTOSIS (SYMPTOMATIC) Status: Acute Current Visit: Yes (4) Neutropenia SNOMED Code(s): 540677923 ICD Code: D70.9 - NEUTROPENIA, UNSPECIFIED Status: Acute Current Visit: Yes Problem List Initiated/Reviewed/Updated: Yes Orders Last 24hrs: Active Orders 24 hr Category Date Time Status Admission Status [Patient Status] [ADT] Stat ADT 05/21/20 01:19 Active Communication Order [RC] PER UNIT ROUTINE Care 05/21/20 02:08 Ordered EKG Documentation Completion [RC] AM Care 05/20/20 22:21 Active Intake and Output [RC] QSHIFT Care 05/21/20 02:01 Ordered May Shower [RC] ASDIRECTED Care 05/21/20 02:00 Ordered Oxygen Therapy [RC] PRN Care 05/21/20 02:01 Ordered DESULFURIZER HAND Record [RC] Q4H Care 05/21/20 02:08 Ordered RT Incentive Spirometry [RC] Q1HWA Care 05/21/20 02:00 Ordered Up ad Arabella [RC] ASDIRECTED Care 05/21/20 02:00 Ordered Vital Signs [RC] PER UNIT ROUTINE Care 05/21/20 02:08 Ordered Nothing Per Oral Diet [DIET] Diet 05/21/20 Breakfast Ordered CBC WITH AUTO DIFF [HEME] AM Lab 05/21/20 05:11 Ordered CMP [COMPREHENSIVE METABOLIC PN,CMP] [CHEM] AM Lab 05/21/20 05:11 Ordered Acetaminophen [TylenoL] Med 05/21/20 02:00 Ordered 650 mg PO Q6H PRN HYDROmorphone/Normal Saline [Dilaudid DESULFURIZER HAND 10 MG in NS Med 05/21/20 02:07 Ordered 50 ML] 0.2 mg IV ASDIRECTED PRN Metoprolol Succinate [Toprol XL] Med 05/21/20 02:30 Ordered 25 mg PO DAILY Naloxone [Narcan] Med 05/21/20 02:07 Ordered 0.04 mg IVPUSH Q3M PRN Pantoprazole [ProTONIX IV] 80 mg Med 05/21/20 02:00 Ordered Sodium Chloride 0.9% [Normal Saline] 10 ml IV NOW Sodium Chloride 0.9% [Normal Saline] Med 05/21/20 02:00 Ordered 10 ml IV ASDIRECTED PRN Sodium Chloride 0.9% [Normal Saline] 1,000 ml Med 05/21/20 02:00 Ordered IV ASDIRECTED Sodium Chloride 0.9% [Normal Saline] 1,000 ml Med 05/20/20 22:49 Active IV NOW Sodium Chloride 0.9% [Saline Flush] Med 05/20/20 22:21 Active 10 ml FLUSH ASDIRECTED PRN Sodium Chloride 0.9% [Saline Flush] Med 05/20/20 22:21 Active 2.5 ml FLUSH ASDIRECTED PRN Sodium Chloride 0.9% [Saline Flush] Med 05/21/20 02:00 Ordered 2.5 ml FLUSH ASDIRECTED PRN Sucralfate [Carafate] Med 05/21/20 07:30 Ordered 1 gm PO QIDACANDBED diphenhydrAMINE [Benadryl] Med 05/21/20 02:00 Ordered 50 mg IVPUSH Q4H PRN Peripheral IV Insertion Adult [OM.PC] Urgent Oth 05/21/20 02:00 Ordered Pulse Oximetry Continuous Monitoring [OM.PC] Routine Oth 05/21/20 02:08 Ordered Saline Lock Insert [OM.PC] Stat Oth 05/20/20 22:21 Ordered Resuscitation Status Routine Resus Stat 05/21/20 02:00 Ordered Medication Orders Acetaminophen (Acetaminophen 325 Mg Tab) 650 mg PO Q6H PRN PRN Reason: Pain (mild 1-3) Diphenhydramine HCl (Diphenhydramine 50 Mg/Ml Sdv) 50 mg IVPUSH Q4H PRN PRN Reason: Itching Hydromorphone HCl (Hydromorphone/Normal Saline 10 Mg/50 Ml Corporate Safety Coordinator) 0.2 mg IV ASDIRECTED PRN; Protocol PRN Reason: Abdominal Pain Sodium Chloride (Normal Saline) 1,000 mls @ 150 mls/hr IV NOW STA Stop: 05/21/20 05:28 Last Admin: 05/20/20 22:50 Dose: 150 mls/hr Documented by: ANA MARIA Sodium Chloride (Normal Saline) 1,000 mls @ 100 mls/hr IV ASDIRECTED [facility] Pantoprazole Sodium 80 mg/ (Sodium Chloride) 10 mls @ 300 mls/hr IV NOW ONE Stop: 05/21/20 02:01 Metoprolol Succinate (Metoprolol Succinate 25 Mg Tab.Er) 25 mg PO DAILY QING Naloxone HCl (Naloxone 0.4 Mg/Ml Syringe) 0.04 mg IVPUSH Q3M PRN PRN Reason: Respiratory Depression Sodium Chloride (Sodium Chloride 0.9% 10 Ml Syringe) 10 ml FLUSH ASDIRECTED PRN PRN Reason: Keep Vein Open Sodium Chloride (Sodium Chloride 0.9% 2.5 Ml Syringe) 2.5 ml FLUSH ASDIRECTED PRN PRN Reason: Keep Vein Open Sodium Chloride (Sodium Chloride 0.9% 2.5 Ml Syringe) 2.5 ml FLUSH ASDIRECTED PRN PRN Reason: Keep Vein Open Sodium Chloride (Sodium Chloride 0.9% 10 Ml Sdv) 10 ml IV ASDIRECTED PRN PRN Reason: IV Use Sucralfate (Sucralfate 1 Gm Tab) 1 gm PO QIDACANDBED [facility] Assessment/Plan Comment:: Will admit patient for bowel rest and pain control. Will likely consult his oncologist regarding his worsening neutropenia and lymphocytosis. Pain: Dilaudid DESULFURIZER HAND 0.2mg q 10min, tylenol prn CV: Metoprolol 25mg one time daily. Likey hypertension with improve with pain control and home medication. Heart rate normal currently. Pulm: IS use, sating well on room air. GI: NPO except ice chips and sips with meds. IV protonix 80mg once. SUcralfate 1mg QID. GI cocktail given. Repeat CMP in am Renal: BUN/Cr wnl. Monitor urine output. NS @ 100ml/hr Heme: Repeat CBC in am. Hold daily ASA for now ID: No indications at this time for antibiotics. Will monitor for changes. Px: SCD
[2020-05-21] MEDS ORDERED: Metoprolol Succinate 25 MG Tab.ER PO SCH ×2 (02:30→21:00)
[2020-05-21] MEDS ORDERED: Promethazine 25 MG/ML SDV IM PRN (05:29)
[2020-05-21] MEDS ORDERED: Scopolamine 1.5 MG Transdermal Patch TOP PRN (05:30)
[2020-05-21] MEDS: Ondansetron 4 MG/2 ML SDV IVPUSH PRN ×2 (05:30→16:25)
[2020-05-21] MEDS: Ondansetron 4 MG/2 ML SDV ONE ×2 (05:30→06:09)
[2020-05-21] MEDS ORDERED: dimenhyDRINATE 50 MG Tab PO ONE (05:46)
[2020-05-21 07:02] LABS: BLOOD UREA NITROGEN,BUN 22 mg/dL (7.0-18.0); CARBON DIOXIDE,CO2 27.9 mmol/L (21.0-32.0); CHLORIDE,CL 105 mmol/L (98-107); GLUCOSE RANDOM 118 mg/dL (74-106); POTASSIUM,K 4.4 mmol/L (3.5-5.1); SODIUM,NA 139 mmol/L (136-148)
[2020-05-21] MEDS ORDERED: HYDROmorphone 1 MG/ML Syringe IVPUSH PRN ×2 (08:56→16:51)
[2020-05-21] MEDS ORDERED: Psyllium Husk Powder Sugar Free 5.85 GM Packet PO SCH (09:00)
[2020-05-21] MEDS ORDERED: Acetaminophen/HYDROcodone 325-5 MG Tab PO PRN (09:21)
[2020-05-21] MEDS: Sucralfate 1 GM Tab PO SCH ×2 (09:29→12:22)
--- NOTE | 2020-05-21 09:48 | PCM.PN ---
- General Info Date of Service: 05/21/20 Subjective Update: Patient states that dilaudid REPLANTER made him nauseated so it was discontinued last evening. He was able to sleep after that. He is urinating and currently pain free. He denies any nausea this morning. Vitals stable this am. Functional Status: Reports: Pain Controlled, Urinating. Denies: New Symptoms - Review of Systems General: Reports: No Symptoms Pulmonary: Reports: No Symptoms Cardiovascular: Reports: No Symptoms Gastrointestinal: Reports: No Symptoms Genitourinary: Reports: No Symptoms Musculoskeletal: Reports: No Symptoms - Patient Data Vitals - Most Recent: Last Vital Signs Temp 36.3 C 05/21/20 02:10 Pulse 69 05/21/20 02:48 Resp 18 05/21/20 02:10 BP 151/81 H 05/21/20 02:48 Pulse Ox 92 L 05/21/20 04:29 Weight - Most Recent: 80.014 kg I&O - Last 24 Hours: Intake & Output 05/20/20 05/21/20 05/21/20 22:59 06:59 14:59 Intake Total 50 Output Total 250 Balance -200 Lab Results Last 24 Hours: Laboratory Results - last 24 hr 05/20/20 05/20/20 05/20/20 Range/Units 22:20 22:20 22:20 WBC 93.19 H (4.0-11.0) K/uL RBC 4.84 (4.50-5.90) M/uL Hgb 14.2 (13.0-17.0) g/dL Hct 44.4 (38.0-50.0) % MCV 91.7 (80.0-98.0) fL MCH 29.3 (27.0-32.0) pg MCHC 32.0 (31.0-37.0) g/dL RDW Std Deviation 47.2 (28.0-62.0) fl RDW Coeff of Isaias 14 (11.0-15.0) % Plt Count 240 (150-400) K/uL MPV 11.20 (7.40-12.00) fL Add Manual Diff YES Neutrophils % (Manual) 2 L (48.0-80.0) % Lymphocytes % (Manual) 96 H (16.0-40.0) % Monocytes % (Manual) 2 (0.0-15.0) % Nucleated RBC % 0.0 /100WBC Absolute Seg Neuts 1.9 (1.4-5.7) Lymphocytes # (Manual) 89.5 H (0.6-2.4) Monocytes # (Manual) 1.9 H (0.0-0.8) Nucleated RBCs # 0 K/uL Smudge Cells MANY Lactate 0.5 (0.20-2.00) mmol/L Sodium 140 (136-148) mmol/L Potassium 4.1 (3.5-5.1) mmol/L Chloride 104 (98-107) mmol/L Carbon Dioxide 28.1 (21.0-32.0) mmol/L BUN 28 H (7.0-18.0) mg/dL Creatinine 0.9 (0.8-1.3) mg/dL Est Cr Clr Drug Dosing 65.28 mL/min Estimated GFR (MDRD) > 60.0 ml/min Glucose 109 H (74-106) mg/dL Calcium 8.6 (8.5-10.1) mg/dL Total Bilirubin 1.0 (0.2-1.0) mg/dL AST 37 (15-37) IU/L ALT 47 (14-63) IU/L Alkaline Phosphatase 88 (46-116) U/L Troponin I < 0.050 (0.000-0.056) ng/mL Total Protein 6.5 (6.4-8.2) g/dL Albumin 3.8 (3.4-5.0) g/dL Globulin 2.7 (2.6-4.0) g/dL Albumin/Globulin Ratio 1.4 (0.9-1.6) Lipase 93 (73-393) U/L Urine Color Urine Appearance Urine pH (5.0-8.0) Ur Specific [place] (1.001-1.035) Urine Protein (NEGATIVE) mg/dL Urine Glucose (UA) (NEGATIVE) mg/dL Urine Ketones (NEGATIVE) mg/dL Urine Occult Blood (NEGATIVE) Urine Nitrite (NEGATIVE) Urine Bilirubin (NEGATIVE) Urine Urobilinogen (<2.0) EU/dL Ur Leukocyte Esterase (NEGATIVE) SARS-CoV-2 RNA (NITHIN) (NEGATIVE) 05/20/20 05/21/20 05/21/20 Range/Units 22:20 00:10 06:05 WBC 85.26 H (4.0-11.0) K/uL RBC 4.72 (4.50-5.90) M/uL Hgb 13.6 (13.0-17.0) g/dL Hct 43.7 (38.0-50.0) % MCV 92.6 (80.0-98.0) fL MCH 28.8 (27.0-32.0) pg MCHC 31.1 (31.0-37.0) g/dL RDW Std Deviation 47.8 (28.0-62.0) fl RDW Coeff of Isaias 14 (11.0-15.0) % Plt Count 211 (150-400) K/uL MPV 11.10 (7.40-12.00) fL Add Manual Diff YES Neutrophils % (Manual) 12 L (48.0-80.0) % Lymphocytes % (Manual) 87 H (16.0-40.0) % Monocytes % (Manual) 1 (0.0-15.0) % Nucleated RBC % 0.0 /100WBC Absolute Seg Neuts 10.2 H (1.4-5.7) Lymphocytes # (Manual) 74.2 H (0.6-2.4) Monocytes # (Manual) 0.9 H (0.0-0.8) Nucleated RBCs # 0 K/uL Smudge Cells MANY Lactate (0.20-2.00) mmol/L Sodium (136-148) mmol/L Potassium (3.5-5.1) mmol/L Chloride (98-107) mmol/L Carbon Dioxide (21.0-32.0) mmol/L BUN (7.0-18.0) mg/dL Creatinine (0.8-1.3) mg/dL Est Cr Clr Drug Dosing mL/min Estimated GFR (MDRD) ml/min Glucose (74-106) mg/dL Calcium (8.5-10.1) mg/dL Total Bilirubin (0.2-1.0) mg/dL AST (15-37) IU/L ALT (14-63) IU/L Alkaline Phosphatase (46-116) U/L Troponin I (0.000-0.056) ng/mL Total Protein (6.4-8.2) g/dL Albumin (3.4-5.0) g/dL Globulin (2.6-4.0) g/dL Albumin/Globulin Ratio (0.9-1.6) Lipase (73-393) U/L Urine Color YELLOW Urine Appearance CLEAR Urine pH 7.0 (5.0-8.0) Ur Specific [place] 1.015 (1.001-1.035) Urine Protein NEGATIVE (NEGATIVE) mg/dL Urine Glucose (UA) NEGATIVE (NEGATIVE) mg/dL Urine Ketones NEGATIVE (NEGATIVE) mg/dL Urine Occult Blood NEGATIVE (NEGATIVE) Urine Nitrite NEGATIVE (NEGATIVE) Urine Bilirubin NEGATIVE (NEGATIVE) Urine Urobilinogen 0.2 (<2.0) EU/dL Ur Leukocyte Esterase NEGATIVE (NEGATIVE) SARS-CoV-2 RNA (NITHIN) NEGATIVE (NEGATIVE) 05/21/20 Range/Units 06:05 WBC (4.0-11.0) K/uL RBC (4.50-5.90) M/uL Hgb (13.0-17.0) g/dL Hct (38.0-50.0) % MCV (80.0-98.0) fL MCH (27.0-32.0) pg MCHC (31.0-37.0) g/dL RDW Std Deviation (28.0-62.0) fl RDW Coeff of Isaias (11.0-15.0) % Plt Count (150-400) K/uL MPV (7.40-12.00) fL Add Manual Diff Neutrophils % (Manual) (48.0-80.0) % Lymphocytes % (Manual) (16.0-40.0) % Monocytes % (Manual) (0.0-15.0) % Nucleated RBC % /100WBC Absolute Seg Neuts (1.4-5.7) Lymphocytes # (Manual) (0.6-2.4) Monocytes # (Manual) (0.0-0.8) Nucleated RBCs # K/uL Smudge Cells Lactate (0.20-2.00) mmol/L Sodium 139 (136-148) mmol/L Potassium 4.4 (3.5-5.1) mmol/L Chloride 105 (98-107) mmol/L Carbon Dioxide 27.9 (21.0-32.0) mmol/L BUN 22 H (7.0-18.0) mg/dL Creatinine 1.0 (0.8-1.3) mg/dL Est Cr Clr Drug Dosing 58.76 mL/min Estimated GFR (MDRD) > 60.0 ml/min Glucose 118 H (74-106) mg/dL Calcium 8.4 L (8.5-10.1) mg/dL Total Bilirubin 1.3 H (0.2-1.0) mg/dL AST 35 (15-37) IU/L ALT 44 (14-63) IU/L Alkaline Phosphatase 92 (46-116) U/L Troponin I (0.000-0.056) ng/mL Total Protein 6.3 L (6.4-8.2) g/dL Albumin 3.6 (3.4-5.0) g/dL Globulin 2.7 (2.6-4.0) g/dL Albumin/Globulin Ratio 1.3 (0.9-1.6) Lipase (73-393) U/L Urine Color Urine Appearance Urine pH (5.0-8.0) Ur Specific [place] (1.001-1.035) Urine Protein (NEGATIVE) mg/dL Urine Glucose (UA) (NEGATIVE) mg/dL Urine Ketones (NEGATIVE) mg/dL Urine Occult Blood (NEGATIVE) Urine Nitrite (NEGATIVE) Urine Bilirubin (NEGATIVE) Urine Urobilinogen (<2.0) EU/dL Ur Leukocyte Esterase (NEGATIVE) SARS-CoV-2 RNA (NTIHIN) (NEGATIVE) Med Orders - Current: Current Medications Acetaminophen (Acetaminophen 325 Mg Tab) 650 mg PO Q6H PRN PRN Reason: Pain (mild 1-3) Hydrocodone Bitart/Acetaminophen (Acetaminophen/Hydrocodone 325-5 Mg Tab) 2 tab PO Q4H PRN PRN Reason: Abdominal Pain Diphenhydramine HCl (Diphenhydramine 50 Mg/Ml Sdv) 50 mg IVPUSH Q4H PRN PRN Reason: Itching Sodium Chloride (Normal Saline) 1,000 mls @ 100 mls/hr IV ASDIRECTED [facility] Last Admin: 05/21/20 03:01 Dose: 100 mls/hr Documented by: Metoprolol Succinate (Metoprolol Succinate 25 Mg Tab.Er) 25 mg PO BEDTIME [facility] Ondansetron HCl (Ondansetron 4 Mg/2 Ml Sdv) 4 mg IVPUSH Q4H PRN PRN Reason: Nausea/Vomiting Last Admin: 05/21/20 05:30 Dose: 4 mg Documented by: Promethazine HCl (Promethazine 25 Mg/Ml Sdv) 25 mg IM Q8H PRN PRN Reason: Nausea/Vomiting Psyllium Husk (Psyllium Husk Powder Sugar Free 5.85 Gm Packet) 1 pkt PO DAILY [facility] Last Admin: 05/21/20 09:31 Dose: 1 pkt Documented by: Scopolamine (Scopolamine 1.5 Mg Transdermal Patch) 1.5 mg TOP ONETIME PRN PRN Reason: Nausea Sodium Chloride (Sodium Chloride 0.9% 2.5 Ml Syringe) 2.5 ml FLUSH ASDIRECTED P RN PRN Reason: Keep Vein Open Sodium Chloride (Sodium Chloride 0.9% 10 Ml Sdv) 10 ml IV ASDIRECTED PRN PRN Reason: IV Use Sucralfate (Sucralfate 1 Gm Tab) 1 gm PO QIDACANDBED [facility] Last Admin: 05/21/20 09:29 Dose: 1 gm Documented by: Discontinued Medications Al Hydroxide/Mg Hydroxide (Aluminum Hydroxide/Magnesium Hydroxide/Simethicone Susp 30 Ml Cup) Confirm Administered Dose 30 ml .ROUTE .STK-MED ONE Stop: 05/21/20 02:04 Last Admin: 05/21/20 02:22 Dose: Not Given Documented by: Al Hydroxide/Mg Hydroxide 15 (ml/ Lidocaine HCl 5 ml) 0 ml PO ONETIME ONE Stop: 05/21/20 02:08 Last Admin: 05/21/20 02:09 Dose: 20 each Documented by: Al Hydroxide/Mg Hydroxide 15 (ml/ Lidocaine HCl 5 ml) 0 ml PO ONETIME ONE Stop: 05/21/20 02:09 Last Admin: 05/21/20 02:22 Dose: Not Given Documented by: Dimenhydrinate (Dimenhydrinate 50 Mg Tab) 50 mg PO ONETIME ONE Stop: 05/21/20 05:47 Last Admin: 05/21/20 05:55 Dose: 50 mg Documented by: Hydromorphone HCl (Hydromorphone 1 Mg/Ml Syringe) 0.5 mg IVPUSH ONETIME ONE Stop: 05/21/20 01:20 Last Admin: 05/21/20 01:42 Dose: 0.5 mg Documented by: Hydromorphone HCl (Hydromorphone/Normal Saline 10 Mg/50 Ml Safety Engineer) 0.2 mg IV ASDIRECTED PRN; Protocol PRN Reason: Abdominal Pain Last Admin: 05/21/20 03:09 Dose: 0.2 mg Documented by: Hydromorphone HCl (Hydromorphone 1 Mg/Ml Syringe) 0.5 mg IVPUSH Q1H PRN PRN Reason: Abdominal Pain Sodium Chloride (Normal Saline) 1,000 mls @ 150 mls/hr IV NOW STA Stop: 05/21/20 05:28 Last Admin: 05/20/20 22:50 Dose: 150 mls/hr Documented by: Pantoprazole Sodium 80 mg/ (Sodium Chloride) 20 mls @ 600 mls/hr IV NOW ONE Stop: 05/21/20 02:01 Last Admin: 05/21/20 02:50 Dose: 600 mls/hr Documented by: Iopamidol (Iopamidol 755 Mg/Ml 500 Ml Multipack Bottle) 100 ml IVPUSH ONETIME STA Stop: 05/20/20 23:34 Last Admin: 05/20/20 23:33 Dose: 100 ml Documented by: Lidocaine HCl (Lidocaine 2% Viscous Solution 15 Ml Cup) Confirm Administered Dose 15 ml .ROUTE .STK-MED ONE Stop: 05/21/20 02:05 Last Admin: 05/21/20 02:22 Dose: Not Given Documented by: Meperidine HCl (Meperidine Pf 50 Mg/Ml Syringe) 50 mg IVPUSH ONETIME ONE Stop: 05/20/20 22:24 Last Admin: 05/20/20 22:52 Dose: 50 mg Documented by: Metoprolol Succinate (Metoprolol Succinate 25 Mg Tab.Er) 25 mg PO DAILY [facility] Last Admin: 05/21/20 02:48 Dose: 25 mg Documented by: Naloxone HCl (Naloxone 0.4 Mg/Ml Syringe) 0.04 mg IVPUSH Q3M PRN PRN Reason: Respiratory Depression Ondansetron HCl (Ondansetron 4 Mg/2 Ml Sdv) 4 mg IVPUSH ONETIME ONE Stop: 05/20/20 22:24 Last Admin: 05/20/20 22:52 Dose: 4 mg Documented by: Ondansetron HCl (Ondansetron 4 Mg/2 Ml Sdv) Confirm Administered Dose 4 mg .ROUTE .STK-MED ONE Stop: 05/21/20 05:29 Last Admin: 05/21/20 06:09 Dose: Not Given Documented by: Sodium Chloride (Sodium Chloride 0.9% 2.5 Ml Syringe) 2.5 ml FLUSH ASDIRECTED PRN PRN Reason: Keep Vein Open Sodium Chloride (Sodium Chloride 0.9% 10 Ml Syringe) 10 ml FLUSH ASDIRECTED PRN PRN Reason: Keep Vein Open - Exam General: Alert, Oriented HEENT: Pupils Equal, Pupils Reactive Lungs: Normal Respiratory Effort Cardiovascular: Regular Rate GI/Abdominal Exam: Soft, Non-Tender, No Distention, No Mass - Patient Data Lab Results Last 24 hrs: Laboratory Results - last 24 hr 05/20/20 05/20/20 05/20/20 Range/Units 22:20 22:20 22:20 WBC 93.19 H (4.0-11.0) K/uL RBC 4.84 (4.50-5.90) M/uL Hgb 14.2 (13.0-17.0) g/dL Hct 44.4 (38.0-50.0) % MCV 91.7 (80.0-98.0) fL MCH 29.3 (27.0-32.0) pg MCHC 32.0 (31.0-37.0) g/dL RDW Std Deviation 47.2 (28.0-62.0) fl RDW Coeff of Isaias 14 (11.0-15.0) % Plt Count 240 (150-400) K/uL MPV 11.20 (7.40-12.00) fL Add Manual Diff YES Neutrophils % (Manual) 2 L (48.0-80.0) % Lymphocytes % (Manual) 96 H (16.0-40.0) % Monocytes % (Manual) 2 (0.0-15.0) % Nucleated RBC % 0.0 /100WBC Absolute Seg Neuts 1.9 (1.4-5.7) Lymphocytes # (Manual) 89.5 H (0.6-2.4) Monocytes # (Manual) 1.9 H (0.0-0.8) Nucleated RBCs # 0 K/uL Smudge Cells MANY Lactate 0.5 (0.20-2.00) mmol/L Sodium 140 (136-148) mmol/L Potassium 4.1 (3.5-5.1) mmol/L Chloride 104 (98-107) mmol/L Carbon Dioxide 28.1 (21.0-32.0) mmol/L BUN 28 H (7.0-18.0) mg/dL Creatinine 0.9 (0.8-1.3) mg/dL Est Cr Clr Drug Dosing 65.28 mL/min Estimated GFR (MDRD) > 60.0 ml/min Glucose 109 H (74-106) mg/dL Calcium 8.6 (8.5-10.1) mg/dL Total Bilirubin 1.0 (0.2-1.0) mg/dL AST 37 (15-37) IU/L ALT 47 (14-63) IU/L Alkaline Phosphatase 88 (46-116) U/L Troponin I < 0.050 (0.000-0.056) ng/mL Total Protein 6.5 (6.4-8.2) g/dL Albumin 3.8 (3.4-5.0) g/dL Globulin 2.7 (2.6-4.0) g/dL Albumin/Globulin Ratio 1.4 (0.9-1.6) Lipase 93 (73-393) U/L Urine Color Urine Appearance Urine pH (5.0-8.0) Ur Specific [place] (1.001-1.035) Urine Protein (NEGATIVE) mg/dL Urine Glucose (UA) (NEGATIVE) mg/dL Urine Ketones (NEGATIVE) mg/dL Urine Occult Blood (NEGATIVE) Urine Nitrite (NEGATIVE) Urine Bilirubin (NEGATIVE) Urine Urobilinogen (<2.0) EU/dL Ur Leukocyte Esterase (NEGATIVE) SARS-CoV-2 RNA (NITHIN) (NEGATIVE) 05/20/20 05/21/20 05/21/20 Range/Units 22:20 00:10 06:05 WBC 85.26 H (4.0-11.0) K/uL RBC 4.72 (4.50-5.90) M/uL Hgb 13.6 (13.0-17.0) g/dL Hct 43.7 (38.0-50.0) % MCV 92.6 (80.0-98.0) fL MCH 28.8 (27.0-32.0) pg MCHC 31.1 (31.0-37.0) g/dL RDW Std Deviation 47.8 (28.0-62.0) fl RDW Coeff of Isaias 14 (11.0-15.0) % Plt Count 211 (150-400) K/uL MPV 11.10 (7.40-12.00) fL Add Manual Diff YES Neutrophils % (Manual) 12 L (48.0-80.0) % Lymphocytes % (Manual) 87 H (16.0-40.0) % Monocytes % (Manual) 1 (0.0-15.0) % Nucleated RBC % 0.0 /100WBC Absolute Seg Neuts 10.2 H (1.4-5.7) Lymphocytes # (Manual) 74.2 H (0.6-2.4) Monocytes # (Manual) 0.9 H (0.0-0.8) Nucleated RBCs # 0 K/uL Smudge Cells MANY Lactate (0.20-2.00) mmol/L Sodium (136-148) mmol/L Potassium (3.5-5.1) mmol/L Chloride (98-107) mmol/L Carbon Dioxide (21.0-32.0) mmol/L BUN (7.0-18.0) mg/dL Creatinine (0.8-1.3) mg/dL Est Cr Clr Drug Dosing mL/min Estimated GFR (MDRD) ml/min Glucose (74-106) mg/dL Calcium (8.5-10.1) mg/dL Total Bilirubin (0.2-1.0) mg/dL AST (15-37) IU/L ALT (14-63) IU/L Alkaline Phosphatase (46-116) U/L Troponin I (0.000-0.056) ng/mL Total Protein (6.4-8.2) g/dL Albumin (3.4-5.0) g/dL Globulin (2.6-4.0) g/dL Albumin/Globulin Ratio (0.9-1.6) Lipase (73-393) U/L Urine Color YELLOW Urine Appearance CLEAR Urine pH 7.0 (5.0-8.0) Ur Specific [place] 1.015 (1.001-1.035) Urine Protein NEGATIVE (NEGATIVE) mg/dL Urine Glucose (UA) NEGATIVE (NEGATIVE) mg/dL Urine Ketones NEGATIVE (NEGATIVE) mg/dL Urine Occult Blood NEGATIVE (NEGATIVE) Urine Nitrite NEGATIVE (NEGATIVE) Urine Bilirubin NEGATIVE (NEGATIVE) Urine Urobilinogen 0.2 (<2.0) EU/dL Ur Leukocyte Esterase NEGATIVE (NEGATIVE) SARS-CoV-2 RNA (NITHIN) NEGATIVE (NEGATIVE) 05/21/20 Range/Units 06:05 WBC (4.0-11.0) K/uL RBC (4.50-5.90) M/uL Hgb (13.0-17.0) g/dL Hct (38.0-50.0) % MCV (80.0-98.0) fL MCH (27.0-32.0) pg MCHC (31.0-37.0) g/dL RDW Std Deviation (28.0-62.0) fl RDW Coeff of Isaias (11.0-15.0) % Plt Count (150-400) K/uL MPV (7.40-12.00) fL Add Manual Diff Neutrophils % (Manual) (48.0-80.0) % Lymphocytes % (Manual) (16.0-40.0) % Monocytes % (Manual) (0.0-15.0) % Nucleated RBC % /100WBC Absolute Seg Neuts (1.4-5.7) Lymphocytes # (Manual) (0.6-2.4) Monocytes # (Manual) (0.0-0.8) Nucleated RBCs # K/uL Smudge Cells Lactate (0.20-2.00) mmol/L Sodium 139 (136-148) mmol/L Potassium 4.4 (3.5-5.1) mmol/L Chloride 105 (98-107) mmol/L Carbon Dioxide 27.9 (21.0-32.0) mmol/L BUN 22 H (7.0-18.0) mg/dL Creatinine 1.0 (0.8-1.3) mg/dL Est Cr Clr Drug Dosing 58.76 mL/min Estimated GFR (MDRD) > 60.0 ml/min Glucose 118 H (74-106) mg/dL Calcium 8.4 L (8.5-10.1) mg/dL Total Bilirubin 1.3 H (0.2-1.0) mg/dL AST 35 (15-37) IU/L ALT 44 (14-63) IU/L Alkaline Phosphatase 92 (46-116) U/L Troponin I (0.000-0.056) ng/mL Total Protein 6.3 L (6.4-8.2) g/dL Albumin 3.6 (3.4-5.0) g/dL Globulin 2.7 (2.6-4.0) g/dL Albumin/Globulin Ratio 1.3 (0.9-1.6) Lipase (73-393) U/L Urine Color Urine Appearance Urine pH (5.0-8.0) Ur Specific [place] (1.001-1.035) Urine Protein (NEGATIVE) mg/dL Urine Glucose (UA) (NEGATIVE) mg/dL Urine Ketones (NEGATIVE) mg/dL Urine Occult Blood (NEGATIVE) Urine Nitrite (NEGATIVE) Urine Bilirubin (NEGATIVE) Urine Urobilinogen (<2.0) EU/dL Ur Leukocyte Esterase (NEGATIVE) SARS-CoV-2 RNA (NITHIN) (NEGATIVE) Result Diagrams: 05/21/20 06:05 05/21/20 06:05 Sepsis Event Note - Evaluation Sepsis Screening Result: No Definite Risk - Focused Exam Vital Signs: Vital Signs Temp Pulse Pulse Resp BP BP Pulse Ox 05/21/20 04:29 92 L 05/21/20 04:28 86 L 05/21/20 02:48 69 151/81 H 05/21/20 02:10 36.3 C 69 18 151/81 H 91 L 05/21/20 00:20 71 18 155/81 H 95 05/20/20 22:16 36.7 C 66 16 188/84 H 95 - Problem List & Annotations (1) Abdominal pain SNOMED Code(s): 95028423 Code(s): R10.9 - UNSPECIFIED ABDOMINAL PAIN Status: Acute Current Visit: Yes (2) CLL (chronic lymphocytic leukemia) SNOMED Code(s): 60747798 Code(s): C91.10 - CHRONIC LYMPHOCYTIC LEUK OF B-CELL TYPE NOT ACHIEVE REMIS Status: Acute Current Visit: Yes (3) Lymphocytosis SNOMED Code(s): 41524558 Code(s): D72.820 - LYMPHOCYTOSIS (SYMPTOMATIC) Status: Acute Current Visit: Yes (4) Neutropenia SNOMED Code(s): 784303559 Code(s): D70.9 - NEUTROPENIA, UNSPECIFIED Status: Acute Current Visit: Yes - Problem List Review Problem List Initiated/Reviewed/Updated: Yes - My Orders Last 24 Hours: My Active Orders 05/21/20 02:00 May Shower [RC] ASDIRECTED RT Incentive Spirometry [RC] Q1HWA Up ad [place] [RC] ASDIRECTED Acetaminophen [TylenoL] 650 mg PO Q6H PRN Sodium Chloride 0.9% [Normal Saline] 10 ml IV ASDIRECTED PRN Sodium Chloride 0.9% [Normal Saline] 1,000 ml IV ASDIRECTED Sodium Chloride 0.9% [Saline Flush] 2.5 ml FLUSH ASDIRECTED PRN diphenhydrAMINE [Benadryl] 50 mg IVPUSH Q4H PRN Peripheral IV Insertion Adult [OM.PC] Urgent Resuscitation Status Routine 05/21/20 02:01 Intake and Output [RC] Q12H Oxygen Therapy [RC] PRN Vital Signs [RC] Q4H 05/21/20 02:08 Communication Order [RC] PER UNIT ROUTINE REPLANTER Record [RC] Q4H Vital Signs [RC] Q4H Pulse Oximetry Continuous Monitoring [OM.PC] Routine 05/21/20 02:33 H PYLORI STOOL ANTIGEN [MREF] Routine 05/21/20 05:28 Ondansetron [Zofran] 4 mg IVPUSH Q4H PRN 05/21/20 05:29 Promethazine [Phenergan] 25 mg IM Q8H PRN 05/21/20 05:30 Scopolamine [Transderm-Scop] 1.5 mg TOP ONETIME PRN 05/21/20 07:30 Sucralfate [Carafate] 1 gm PO QIDACANDBED 05/21/20 09:00 Psyllium Husk/Aspartame [Metamucil Sugar Free] 1 pkt PO DAILY 05/21/20 09:21 Acetaminophen/HYDROcodone [[place] 325-5 MG] 2 tab PO Q4H PRN 05/21/20 Lunch Regular Diet [DIET] 05/21/20 21:00 Metoprolol Succinate [Toprol XL] 25 mg PO BEDTIME - Plan Plan:: Patient feels much better this am. His labs are improved. His WBC is down to 85. His neutrophil % is up to 12. His leukocyte % is down to 87. He feels much better. Will discontinue his IV pain medications. Patient would like to try hydromorphone. Will advance his diet as tolerated. If pain controlled and tolerating diet will discharge home later this afternoon.
[2020-05-21] MEDS ORDERED: Magnesium Citrate Solution 296 ML Bottle PO PRN (16:50)
[2020-05-21] MEDS ORDERED: Bisacodyl 5 MG Tab PO PRN (16:50)
[2020-05-21] MEDS ORDERED: Polyethylene Glycol 3350 Powder 17 GM Packet PO ONE (16:51)
[2020-05-21] MEDS ORDERED: dimenhyDRINATE 50 MG Tab PO PRN (16:58)
[2020-05-21] MEDS ORDERED: Ketorolac 15 MG/ML SDV IVPUSH PRN (21:50)
[2020-05-21] MEDS ORDERED: Ketorolac 15 MG/ML SDV ONE (22:12)
--- NOTE | 2020-05-22 08:18 | PCM.DCSUM1 ---
Discharge Summary - Hospital Course Free Text/Narrative:: patient is a 75-year-old male who presented to the ER with severe upper abdominal pain. His past medical history significant for chronic lymphocytic leukemia. He has known severe lymphadenopathy intra-abdominally. The pain came on slowly over the course of 3 days. He denied any nausea vomiting. He denies any fevers or chills. When he presented to the emergency room his vital signs were stable other than hypertension. His lab work revealed a lymphocyte pre dominant leukocytosis with neutropenia. CT scan of the abdomen and pelvis was read as unchanged. The patient had had a bowel movement earlier that day. There was gas throughout the colon. There is increased gas near the splenic flexure. The patient was made nothing by mouth other than ice chips and sips with meds. He was given IV fluids and IV pain meds. He is sensitive to narcotics. He was given Dilaudid which helped with the pain but did give him nausea. This is treated with Zofran and Dramamine. Initially he was on a [employer]. he was transitioned to [place] tablets. He had not had any bowel movement so he was given MiraLAX as well as Metamucil. He tried ketorolac which did improve his symptoms. This morning he passed gas and is tolerating a regular diet. He would like to go home. He was cleared for discharge. - Discharge Data Discharge Date: 05/22/20 Discharge Disposition: Home, Self-Care 01 Condition: Stable - Referral to Home Health Primary Care Physician: PCP None - Discharge Diagnosis/Problem(s) (1) Abdominal pain SNOMED Code(s): 06099670 ICD Code: R10.9 - UNSPECIFIED ABDOMINAL PAIN Status: Acute Current Visit: Yes (2) CLL (chronic lymphocytic leukemia) SNOMED Code(s): 86633036 ICD Code: C91.10 - CHRONIC LYMPHOCYTIC LEUK OF B-CELL TYPE NOT ACHIEVE REMIS Status: Acute Current Visit: Yes (3) Lymphocytosis SNOMED Code(s): 20003816 ICD Code: D72.820 - LYMPHOCYTOSIS (SYMPTOMATIC) Status: Acute Current Visit: Yes (4) Neutropenia SNOMED Code(s): 415952647 ICD Code: D70.9 - NEUTROPENIA, UNSPECIFIED Status: Acute Current Visit: Yes - Patient Instructions Diet: Regular Diet as Tolerated Activity: Rest and Relax Today Driving: Do Not Drive Showering/Bathing: May Shower Notify Provider of: Fever, Increased Pain, Nausea and/or Vomiting - Discharge Plan *PRESCRIPTION DRUG MONITORING PROGRAM REVIEWED*: Yes *COPY OF PRESCRIPTION DRUG MONITORING REPORT IN PATIENT KAYLEIGH: Yes Prescriptions/Med Rec: Sucralfate [Carafate] 1 gm PO QIDACANDBED #40 tablet Pantoprazole [ProTONIX] 40 mg PO BID #60 tab.cr Home Medications: Home Meds Aspirin 81 mg PO DAILY tab.chew 05/12/17 [Rx] Metoprolol Tartrate [Lopressor] 25 mg PO DAILY 30 Days #30 tab 05/12/17 [Rx] Pantoprazole [ProTONIX] 40 mg PO BID #60 tab.cr 05/21/20 [Rx] Sucralfate [Carafate] 1 gm PO QIDACANDBED #40 tablet 05/21/20 [Rx] Zolpidem [Ambien] 10 mg PO BEDTIME 05/21/20 [History] Forms: ED Department Discharge Referrals: PCP,None [Primary Care Provider] - - Discharge Summary/Plan Comment DC Time >30 min.: No - General Info Functional Status: Reports: Pain Controlled, Tolerating Diet, Ambulating - Review of Systems General: Reports: No Symptoms HEENT: Reports: No Symptoms Pulmonary: Reports: No Symptoms Cardiovascular: Reports: No Symptoms Gastrointestinal: Reports: Flatus - Patient Data Vitals - Most Recent: Last Vital Signs Temp 37.1 C 05/22/20 06:00 Pulse 69 05/21/20 02:48 Resp 16 05/22/20 06:00 BP 140/97 H 05/22/20 06:00 Pulse Ox 92 L 05/22/20 06:00 Weight - Most Recent: 80.014 kg I&O - Last 24 hours: Intake & Output 05/21/20 05/22/20 05/22/20 22:59 06:59 14:59 Intake Total 460 500 Output Total 680 1180 Balance -220 -680 Lab Results - Last 24 hrs: Laboratory Results - last 24 hr 05/22/20 Range/Units 05:50 WBC 79.72 H (4.0-11.0) K/uL RBC 4.56 (4.50-5.90) M/uL Hgb 13.2 (13.0-17.0) g/dL Hct 41.8 (38.0-50.0) % MCV 91.7 (80.0-98.0) fL MCH 28.9 (27.0-32.0) pg MCHC 31.6 (31.0-37.0) g/dL RDW Std Deviation 46.8 (28.0-62.0) fl RDW Coeff of Isaias 14 (11.0-15.0) % Plt Count 204 (150-400) K/uL MPV 10.50 (7.40-12.00) fL Add Manual Diff YES Neutrophils % (Manual) 2 L (48.0-80.0) % Lymphocytes % (Manual) 96 H (16.0-40.0) % Monocytes % (Manual) 2 (0.0-15.0) % Nucleated RBC % 0.0 /100WBC Absolute Seg Neuts 1.6 (1.4-5.7) Lymphocytes # (Manual) 76.5 H (0.6-2.4) Monocytes # (Manual) 1.6 H (0.0-0.8) Nucleated RBCs # 0 K/uL Smudge Cells MANY Med Orders - Current: Current Medications Acetaminophen (Acetaminophen 325 Mg Tab) 650 mg PO Q6H PRN PRN Reason: Pain (mild 1-3) Hydrocodone Bitart/Acetaminophen (Acetaminophen/Hydrocodone 325-5 Mg Tab) 2 tab PO Q4H PRN PRN Reason: Abdominal Pain Last Admin: 05/21/20 10:57 Dose: 2 tab Documented by: Bisacodyl (Bisacodyl 5 Mg Tab) 5 mg PO BID PRN PRN Reason: Constipation Dimenhydrinate (Dimenhydrinate 50 Mg Tab) 50 mg PO Q6H PRN PRN Reason: Other Last Admin: 05/21/20 17:24 Dose: 50 mg Documented by: Diphenhydramine HCl (Diphenhydramine 50 Mg/Ml Sdv) 50 mg IVPUSH Q4H PRN PRN Reason: Itching Hydromorphone HCl (Hydromorphone 1 Mg/Ml Syringe) 0.5 mg IVPUSH Q1H PRN PRN Reason: Pain Sodium Chloride (Normal Saline) 1,000 mls @ 100 mls/hr IV ASDIRECTED QING Last Admin: 05/21/20 03:01 Dose: 100 mls/hr Documented by: Ketorolac Tromethamine (Ketorolac 15 Mg/Ml Sdv) 15 mg IVPUSH Q6H PRN PRN Reason: Pain Magnesium Citrate (Magnesium Citrate Solution 296 Ml Bottle) 296 ml PO ONETIME PRN PRN Reason: Constipation Metoprolol Succinate (Metoprolol Succinate 25 Mg Tab.Er) 25 mg PO BEDTIME [facility] Ondansetron HCl (Ondansetron 4 Mg/2 Ml Sdv) 4 mg IVPUSH Q4H PRN PRN Reason: Nausea/Vomiting Last Admin: 05/21/20 16:25 Dose: 4 mg Documented by: Promethazine HCl (Promethazine 25 Mg/Ml Sdv) 25 mg IM Q8H PRN PRN Reason: Nausea/Vomiting Psyllium Husk (Psyllium Husk Powder Sugar Free 5.85 Gm Packet) 1 pkt PO DAILY [facility] Last Admin: 05/21/20 09:31 Dose: 1 pkt Documented by: Scopolamine (Scopolamine 1.5 Mg Transdermal Patch) 1.5 mg TOP ONETIME PRN PRN Reason: Nausea Sodium Chloride (Sodium Chloride 0.9% 2.5 Ml Syringe) 2.5 ml FLUSH ASDIRECTED PRN PRN Reason: Keep Vein Open Sodium Chloride (Sodium Chloride 0.9% 10 Ml Sdv) 10 ml IV ASDIRECTED PRN PRN Reason: IV Use Sucralfate (Sucralfate 1 Gm Tab) 1 gm PO QIDACANDBED [facility] Last Admin: 05/21/20 12:22 Dose: 1 gm Documented by: Discontinued Medications Al Hydroxide/Mg Hydroxide (Aluminum Hydroxide/Magnesium Hydroxide/Simethicone Susp 30 Ml Cup) Confirm Administered Dose 30 ml .ROUTE .STK-MED ONE Stop: 05/21/20 02:04 Last Admin: 05/21/20 02:22 Dose: Not Given Documented by: Al Hydroxide/Mg Hydroxide 15 (ml/ Lidocaine HCl 5 ml) 0 ml PO ONETIME ONE Stop: 05/21/20 02:08 Last Admin: 05/21/20 02:09 Dose: 20 each Documented by: Al Hydroxide/Mg Hydroxide 15 (ml/ Lidocaine HCl 5 ml) 0 ml PO ONETIME ONE Stop: 05/21/20 02:09 Last Admin: 05/21/20 02:22 Dose: Not Given Documented by: Dimenhydrinate (Dimenhydrinate 50 Mg Tab) 50 mg PO ONETIME ONE Stop: 05/21/20 05:47 Last Admin: 05/21/20 05:55 Dose: 50 mg Documented by: Hydromorphone HCl (Hydromorphone 1 Mg/Ml Syringe) 0.5 mg IVPUSH ONETIME ONE Stop: 05/21/20 01:20 Last Admin: 05/21/20 01:42 Dose: 0.5 mg Documented by: Hydromorphone HCl (Hydromorphone/Normal Saline 10 Mg/50 Ml Brim Ironer Hand) 0.2 mg IV ASDIRECTED PRN; Protocol PRN Reason: Abdominal Pain Last Admin: 05/21/20 03:09 Dose: 0.2 mg Documented by: Hydromorphone HCl (Hydromorphone 1 Mg/Ml Syringe) 0.5 mg IVPUSH Q1H PRN PRN Reason: Abdominal Pain Hydromorphone HCl (Hydromorphone 1 Mg/Ml Syringe) 0.5 mg IVPUSH ONETIME ONE Stop: 05/21/20 16:17 Last Admin: 05/21/20 16:35 Dose: 0.5 mg Documented by: Sodium Chloride (Normal Saline) 1,000 mls @ 150 mls/hr IV NOW STA Stop: 05/21/20 05:28 Last Admin: 05/20/20 22:50 Dose: 150 mls/hr Documented by: Pantoprazole Sodium 80 mg/ (Sodium Chloride) 20 mls @ 600 mls/hr IV NOW ONE Stop: 05/21/20 02:01 Last Admin: 05/21/20 02:50 Dose: 600 mls/hr Documented by: Iopamidol (Iopamidol 755 Mg/Ml 500 Ml Multipack Bottle) 100 ml IVPUSH ONETIME STA Stop: 05/20/20 23:34 Last Admin: 05/20/20 23:33 Dose: 100 ml Documented by: Ketorolac Tromethamine (Ketorolac 15 Mg/Ml Sdv) Confirm Administered Dose 15 mg .ROUTE .STK-MED ONE Stop: 05/21/20 22:13 Lidocaine HCl (Lidocaine 2% Viscous Solution 15 Ml Cup) Confirm Administered Dose 15 ml .ROUTE .STK-MED ONE Stop: 05/21/20 02:05 Last Admin: 05/21/20 02:22 Dose: Not Given Documented by: Meperidine HCl (Meperidine Pf 50 Mg/Ml Syringe) 50 mg IVPUSH ONETIME ONE Stop: 05/20/20 22:24 Last Admin: 05/20/20 22:52 Dose: 50 mg Documented by: Metoprolol Succinate (Metoprolol Succinate 25 Mg Tab.Er) 25 mg PO DAILY QING Last Admin: 05/21/20 02:48 Dose: 25 mg Documented by: Naloxone HCl (Naloxone 0.4 Mg/Ml Syringe) 0.04 mg IVPUSH Q3M PRN PRN Reason: Respiratory Depression Ondansetron HCl (Ondansetron 4 Mg/2 Ml Sdv) 4 mg IVPUSH ONETIME ONE Stop: 05/20/20 22:24 Last Admin: 05/20/20 22:52 Dose: 4 mg Documented by: Ondansetron HCl (Ondansetron 4 Mg/2 Ml Sdv) Confirm Administered Dose 4 mg .ROUTE .STK-MED ONE Stop: 05/21/20 05:29 Last Admin: 05/21/20 06:09 Dose: Not Given Documented by: Polyethylene Glycol (Polyethylene Glycol 3350 Powder 17 Gm Packet) 17 gm PO ONETIME ONE Stop: 05/21/20 16:52 Sodium Chloride (Sodium Chloride 0.9% 2.5 Ml Syringe) 2.5 ml FLUSH ASDIRECTED PRN PRN Reason: Keep Vein Open Sodium Chloride (Sodium Chloride 0.9% 10 Ml Syringe) 10 ml FLUSH ASDIRECTED PRN PRN Reason: Keep Vein Open - Exam General: Reports: Alert Lungs: Reports: Normal Respiratory Effort Cardiovascular: Reports: Regular Rate GI/Abdominal Exam: Soft, Non-Tender, No Distention, No Mass
[2020-05-22 11:06] VITALS: BP 159/74; PULSE 65
--- NOTE | 2020-05-22 12:59 | PCM.SN.2 ---
- Free Text/Narrative Note: I received a call from the floor nurse around 800am this morning saying that the patient was passing gas and pain free and would like to go home. I told the floor RN that I would be right there to discharge the patient. His discharge orders had already been completed the day before. When I arrived at the floor at 815 I was told that the patient had left. I placed the discharge order at that time. The physical exam in my discharge summary was from the evening before when I had re-examined the patient. At that time he was stable, but still having some abdominal discomfort without passing flatus, so we decided to have him stay overnight for pain control and to initiate a bowel regiment with miralax. Per the nurse and what the patient had told her he started having flatus and was pain free this morning. His vitals were stable overnight.
== END 2020-05-22 07:58 | disposition home or self-care (01) ==
LOC: MW.ED 22:08 → MW.MS 05-21 01:19
PROVIDERS: ADMIT Surgery; ATTEND Surgery
DX: R10.9 Unspecified abdominal pain (principal); C91.10 Chronic lymphocytic leukemia of B-cell type not having achieved remission; D70.9 Neutropenia, unspecified; R59.9 Enlarged lymph nodes, unspecified; Z79.82 Long term (current) use of aspirin; Z79.899 Other long term (current) drug therapy; Z85.038 Personal history of other malignant neoplasm of large intestine; Z20.822 Contact with and (suspected) exposure to COVID-19; Z98.890 Other specified postprocedural states
CPT/HCPCS: 36415; 71045; 74177; 80053; 81003; 83605; 83690; 84484; 85025; 87635; 93005; 96374; 96375; 96376; 99285; A9270; C9113; G0378; J1170; J1885; J2175; J2405; J7030; Q9967; U0002

== ENCOUNTER 2020-12-18 10:05 | Day surgery (SDC) | payer BC ==
--- NOTE | 2020-12-18 09:59 | PCM.PREANE ---
Preanesthetic Assessment - Anesthesia/Transfusion/Family Hx Anesthesia History: Prior Anesthesia Without Reaction Family History of Anesthesia Reaction: No Transfusion History: No Prior Transfusion(s) Intubation History: Unknown - Review of Systems General: No Symptoms Pulmonary: No Symptoms Cardiovascular: No Symptoms Gastrointestinal: No Symptoms Neurological: No Symptoms Other: Reports: None - Physical Assessment NPO Status Date: 12/18/20 NPO Status Time: 00:00 Height: 5 ft 7 in Weight: 180 lb ASA Class: 3 Mental Status: Alert & Oriented x3 Airway Class: Mallampati = 2 Dentition: Reports: Normal Dentition ROM/Head Extension: Full Lungs: Clear to Auscultation, Normal Respiratory Effort Cardiovascular: Regular Rate, Regular Rhythm - Allergies Allergies/Adverse Reactions: Allergies Allergy/AdvReac Type Severity Reaction Status Date / Time oxycodone Allergy Chest Pain Verified 12/14/20 11:05 - Acknowledgements Anesthesia Type Planned: MAC Pt an Appropriate Candidate for the Planned Anesthesia: Yes Alternatives and Risks of Anesthesia Discussed w Pt/Guardian: Yes Pt/Guardian Understands and Agrees with Anesthesia Plan: Yes PreAnesthesia Questionnaire Other HEENT History: uses reading glasses Cardiovascular History: Reports: Afib Other Cardiovascular History: takes Metoprolol and ASA 81 mg for A-Fib Respiratory History: Reports: None Gastrointestinal History: Reports: Other (See Below) Other Gastrointestinal History: colon cancer Genitourinary History: Reports: None Musculoskeletal History: Reports: Back Pain, Chronic Neurological History: Reports: Other (See Below) Other Neuro History: hx of motion sickness Psychiatric History: Reports: None Endocrine/Metabolic History: Reports: None Hematologic History: Reports: Anticoagulation Therapy Other Hematologic History: ASA 81 mg for A Fib Immunologic History: Reports: None Oncologic (Cancer) History: Reports: Colon Other Oncologic History: CLL Dermatologic History: Reports: None - Past Surgical History Head Surgeries/Procedures: Reports: None HEENT Surgical History: Reports: None Cardiovascular Surgical History: Reports: None Respiratory Surgical History: Reports: None GI Surgical History: Reports: Colon, Colonoscopy Other GI Surgeries/Procedures: colon resection Male Surgical History: Reports: None Endocrine Surgical History: Reports: None Neurological Surgical History: Reports: Lumbar Spine, Spinal Fusion Musculoskeletal Surgical History: Reports: Arthroscopic Knee Other Musculoskeletal Surgeries/Procedures:: left knee arthroscopy x2 Oncologic Surgical History: Reports: Other (See Below) Other Oncologic Surgeries/Procedures: colon resection - SUBSTANCE USE Tobacco Use Status *Q: Never Tobacco User Recreational Drug Use History: No - HOME MEDS Home Medications: Home Meds Aspirin 81 mg PO DAILY tab.chew 05/12/17 [Rx] Metoprolol Tartrate [Lopressor] 25 mg PO DAILY 30 Days #30 tab 05/12/17 [Rx] - CURRENT (IN HOUSE) MEDS Current Meds: Current Medications Albuterol (Albuterol 0.083% 2.5 Mg/3 Ml Neb Soln) 2.5 mg NEB ONETIME PRN PRN Reason: Wheezing Droperidol (Droperidol 5 Mg/2 Ml Sdv) 0.625 mg IVPUSH ONETIME PRN PRN Reason: Nausea/Vomiting Fentanyl (Fentanyl 100 Mcg/2 Ml Sdv) 50 mcg IVPUSH Q5M PRN PRN Reason: Pain (mild 1-3) Hydromorphone HCl (Hydromorphone 1 Mg/Ml Syringe) 1 mg IVPUSH Q10M PRN PRN Reason: Pain (moderate 4-6) Lactated Ringer's (Ringers, Lactated) 1,000 mls @ 125 mls/hr IV ASDIRECTED QING Metoclopramide HCl (Metoclopramide 10 Mg/2 Ml Sdv) 10 mg IVPUSH ONETIME PRN PRN Reason: Nausea/Vomiting Morphine Sulfate (Morphine 2 Mg/Ml Syringe) 2 mg IVPUSH Q10M PRN PRN Reason: Pain (severe 7-10) Naloxone HCl (Naloxone 0.4 Mg/Ml Sdv) 0.1 mg IVPUSH ASDIRECTED PRN PRN Reason: Respiratory Depression Ondansetron HCl (Ondansetron 4 Mg/2 Ml Sdv) 4 mg IVPUSH ONETIME PRN PRN Reason: Nausea/Vomiting
[~2020-12-18 10:05] MED LIST: Albuterol 0.083% 2.5 MG/3 ML Neb Soln NEB PRN; HYDROmorphone 1 MG/ML Syringe IVPUSH PRN; Lactated Ringers 1,000 ML IV SCH; Metoclopramide 10 MG/2 ML SDV IVPUSH PRN; Morphine 2 MG/ML SYRINGE IVPUSH PRN; Naloxone 0.4 MG/ML SDV IVPUSH PRN; Ondansetron 4 MG/2 ML SDV IVPUSH PRN; fentaNYL 100 MCG/2 ML SDV IVPUSH PRN
[2020-12-18] MEDS ORDERED: Bupivacaine 0.5% 10 ML SDV ONE (10:32)
[2020-12-18] MEDS ORDERED: Lidocaine 2% 5 ML SDV ONE (10:32)
--- NOTE | 2020-12-18 11:35 | PCM.OPNOTE ---
- General Post-Op/Procedure Note Date of Surgery/Procedure: 12/18/20 Operative Procedure(s): Removal of chemotherapy port Pre Op Diagnosis: History of CLL in remission. Desire for port removal. Post-Op Diagnosis: Same Anesthesia Technique: Local Primary Surgeon: Ashok Landers Fluid Replacement, Intraop: 300 EBL in mLs: 5 Condition: Good Free Text/Narrative:: DICTATION [id number] CPT CODE [id number]
[2020-12-18] MEDS ORDERED: Lactated Ringers 1,000 ML IV SCH (11:45)
[2020-12-18 12:47] VITALS: BP 172/83; PULSE 69
--- NOTE | 2020-12-18 12:48 | OR ---
SURGEON: Ashok Landers M.D. DATE OF PROCEDURE: 12/18/2020 OPERATION PERFORMED: Removal of Bard port. PRIMARY SURGEON: Ashok Landers M.D. ANESTHESIA: Local. PREOPERATIVE DIAGNOSES: History of chronic lymphocytic leukemia, desire for port removal. POSTOPERATIVE DIAGNOSES: History of chronic lymphocytic leukemia, desire for port removal. ESTIMATED BLOOD LOSS: 5 mL. INTRAOPERATIVE FLUID REPLACEMENT: 300 mL of crystalloid. DESCRIPTION OF PROCEDURE: The patient was taken to the operating room, placed on the operating table in the supine position. Time-out was called for appropriate identification of patient and procedure. The surgical site had been marked prior to the patient entering the operating room. The chest was then prepped with DuraPrep solution, and sterile drapes were applied. Utilizing the old incision, the skin was infiltrated with 10 mL of 1% plain Xylocaine and approximately 6 mL of 0.5% Marcaine solution. Skin incision was then made and deepened through the subcutaneous tissue, obtaining hemostasis with the use of electrocautery. Dissection was carried down to the port, and the sutures holding it in place were cut. The port and catheter were then removed. The insertion site in the right jugular vein was occluded with pressure by the surgeon for 2 minutes. After pressure was released, there was no bleeding noted. The wound was then inspected for hemostasis, and small bleeding sites were electrocoagulated. The wound was then closed in 2 layers approximating the subcutaneous tissue with 3-0 Vicryl and the skin with subcuticular 4-0 Monocryl. The incision was then Steri- Stripped with half-inch Steri-Strips and dressed with a sterile Tegaderm pad. Sponge, needle, and instrument counts were all correct. The patient tolerated the procedure well and was returned to his day surgery room in stable condition. MAHESH / BRITNEY /[id number]
== END 2020-12-18 11:45 | disposition home or self-care (01) ==
LOC: MW.SDS 10:05
PROVIDERS: ATTEND Surgery
DX: Z45.2 Encounter for adjustment and management of vascular access device (principal); C91.10 Chronic lymphocytic leukemia of B-cell type not having achieved remission; C18.9 Malignant neoplasm of colon, unspecified; Z88.5 Allergy status to narcotic agent; Z88.8 Allergy status to other drugs, medicaments and biological substances; Z98.890 Other specified postprocedural states; Z79.82 Long term (current) use of aspirin
CPT/HCPCS: 36590; J3490; J7120

== ENCOUNTER 2022-06-27 15:53 | Emergency (ER) | payer MEDICARE, OTHER ==
[2022-06-27 16:20] VITALS: BP 130/73; PULSE 71
== END 2022-06-27 17:03 | disposition home or self-care (01) ==
LOC: MW.ED 15:53
DX: S04.62XA Injury of acoustic nerve, left side, initial encounter (principal); I48.91 Unspecified atrial fibrillation; Z88.5 Allergy status to narcotic agent; Z79.01 Long term (current) use of anticoagulants; W37.8XXA Explosion and rupture of other pressurized tire, pipe or hose, initial encounter
CPT/HCPCS: 99283